=== PATIENT | female | born 1945 | race Caucasian/White ===

== ENCOUNTER → 2017-05-28 | Outpatient (CLI) | payer BC ==
[~2017-05-28] MED LIST: ALLGUNK; OXYC10TA31; [UNRECOGNIZED DRUG - REMARK]; [UNRECOGNIZED DRUG - REMARK]; [UNRECOGNIZED DRUG - REMARK]; [UNRECOGNIZED DRUG - REMARK]; [UNRECOGNIZED DRUG - REMARK]
--- NOTE | 2017-05-29 07:43 | MAMMOGRAPHY REPORT ---
BILATERAL DIGITAL SCREENING MAMMOGRAM WITH CAD: 05/28/2017 CLINICAL HISTORY: Routine screening. Patient has no complaints. TECHNIQUE: Bilateral CC and MLO views were obtained. Current study was also evaluated with a Compute r Aided Detection (CAD) system. COMPARISON: Comparison is made to exams dated: 05/23/2016 mammogram, 05/20/2015 mammogram, 05/19/2014 m ammogram, 03/12/2013 mammogram, 02/28/2012 mammogram, and 02/20/2011 mammogram - [facility] nter. BREAST COMPOSITION: There are scattered areas of fibroglandular density in both breasts. FINDINGS: There are mild vascular calcifications in the left breast. There is a stable biopsy clip in the right breast. No suspicious mass, architectural distortion or cluster of microcalcifications is seen. IMPRESSION: ACR BI-RADS CATEGORY 2: BENIGN There is no mammographic evidence of malignancy. A 1 year screening mammogram is recommended. The pa tient will receive written notification of the results. Approximately 10% of breast cancers are not detected with mammography. A negative mammographic report should not delay biopsy if a clinically suggestive mass is present. Julieta Narvaez M.D. ay/:05/28/2017 15:40:01 Soda Clerk: Mi EASON(Rocael)(Minoo)(BD), [facility] letter sent: Normal 1/2 BI-RADS Code: ACR BI-RADS Category 2: Benign
== END | disposition home or self-care (01) ==
LOC: C.MAMM 10:15
PROVIDERS: ATTEND Family Medicine
DX: Z12.31 Encounter for screening mammogram for malignant neoplasm of breast (principal)

== ENCOUNTER → 2017-06-26 | Outpatient (CLI) | payer BC ==
--- NOTE | 2017-06-26 11:32 | DIAGNOSTIC IMAGING REPORT ---
(RENAL)RETROPERITON COMP CLINICAL HISTORY: 71 years-old Female presenting with N28.1 Renal cyst, [id number]. TECHNIQUE: Real-time grayscale and limited color Doppler ultrasound imaging of the kidneys and bladder was performed. COMPARISON: 07/04/2016. FINDINGS: Right kidney: Normal echogenicity. Right kidney measures 9.7 cm. No hydronephrosis. Previously noted minimally complex cystic lesion in the right kidney again demonstrates at least one septation, which does not demonstrate vascularity on color Doppler but is borderline thick orbits contain thin calcification. This lesion now measures 5.6 x 5.6 x 4.8 cm, previously 5.8 x 5.3 x 6.0 cm. Normal perfusion. Left kidney: Normal echogenicity. Left kidney measures 10.0 cm. No hydronephrosis. 6 mm hyperechogenic focus with twinkling artifact suggestive of calculus in the interpolar region. Additional similar-appearing 6 mm focus at the upper pole. Normal perfusion. Bladder: No bladder wall thickening. Bilateral ureteral jets present. Other: None. IMPRESSION: 1. Nonobstructing left renal calculi. 2. Minimally complex cystic lesion in the right kidney (Bosniak 2F). Follow-up ultrasound or CT to be considered in 6-12 months, although the lesion is unchanged in size at one year. Electronically signed by: Jose Guadalupe Gao M.D. 06/26/2017 11:31 AM Dictated Date/Time: 06/26/2017 11:27 AM
== END | disposition home or self-care (01) ==
LOC: C.ULTR 10:41
PROVIDERS: ATTEND Urology
DX: N28.1 Cyst of kidney, acquired (principal); N20.0 Calculus of kidney

== ENCOUNTER → 2017-10-02 | Outpatient (CLI) | payer BC ==
[2017-10-02 18:23] LABS: BASO % 0.1 %; BASO ABS # 0.01 K/uL (0-0.2); HEMATOCRIT 45.4 % (37-47); HEMOGLOBIN 15.2 g/dL (12.0-16.0); IG# 0.02 K/uL (0.00-0.02); LYMPH % 8.2 %; LYMPH ABS # 0.81 K/uL (1.2-3.4); MEAN CELL VOLUME 86.1 fL (80-100); MEAN CORPUSCULAR HEMOGLOBIN 28.8 pg (25-34); MEAN CORPUSCULAR HGB CONC 33.5 g/dl (32-36); MEAN PLATELET VOLUME 10.4 fL (7.4-10.4); MONO % 9.9 %; MONO ABS # 0.97 K/uL (0.11-0.59); NEUT % 81.6 %; NEUT ABS # 8.01 K/uL (1.4-6.5); PLATELET COUNT 177 K/uL (130-400); RED CELL DISTRIBUTION WIDTH CV 13.4 % (11.5-14.5); RED CELL DISTRIBUTION WIDTH SD 42.4 fL (36.4-46.3); WHITE BLOOD COUNT 9.82 K/uL (4.8-10.8)
[2017-10-02 18:40] LABS: BLOOD UREA NITROGEN 17 mg/dl (7-18); CALCIUM 8.9 mg/dl (8.5-10.1); CARBON DIOXIDE 29 mmol/L (21-32); CREATININE 1.37 mg/dl (0.60-1.20); GLUCOSE 96 mg/dl (70-99); POTASSIUM 3.1 mmol/L (3.5-5.1); SODIUM 134 mmol/L (136-145)
--- NOTE | 2017-10-02 18:45 | DIAGNOSTIC IMAGING REPORT ---
CHEST 2 VIEWS ROUTINE CLINICAL HISTORY: COUGH FEVER, FATIGUE COMPARISON STUDY: August 2012 FINDINGS: The study is rotated. The heart is mildly enlarged. There is nonspecific increased density in the right paratracheal region. There is suspected right lower lobe bronchiectasis.[ There is no failure. There is no pleural fluid. Right basilar airspace opacities likely atelectatic IMPRESSION: 1. Technically limited study 2. No evidence of failure 3. Suspected right lower lobe bronchiectasis 4. Right basilar airspace opacities, likely atelectatic 5. Nonspecific increased density in the right paratracheal region. A short-term follow-up chest x-ray or chest CT is recommended Electronically signed by: Matt Brown M.D. 10/02/2017 6:44 PM Dictated Date/Time: 10/02/2017 6:40 PM
== END | disposition home or self-care (01) ==
LOC: C.LAB 17:35
PROVIDERS: ATTEND Family Medicine
DX: R05 Cough (principal); R53.83 Other fatigue

== ENCOUNTER 2023-11-16 14:35 | Observation (INO) ==
[2023-11-16] MEDS: SODIUM CHLORIDE 0.9% 500 ML IV SCH (15:14)
--- NOTE | 2023-11-16 15:17 | Emergency Department Note ---
Impression & Plan Palpitations, Diaphoresis, Elevated troponin, History of atrial fibrillation, Hypertension ED Provider Note NAME: YRIS FIELDS AGE: 78 SEX: F : 1945 ARRIVES VIA: Ambulance INFORMANT: [Patient] ED PROVIDER(S): [Everardo Bernstein MD] CHIEF COMPLAINT: Cardiac assessment HISTORY OF PRESENT ILLNESS: The patient is an 78-year-old female with a history of A-fib. She has undergone ablation. She is not currently on blood thinning agents or any rate controlling meds. She states in the last 24 or so hours, she has noticed episodes of palpitations. The episodes last about 15 minutes. She feels a bit sweaty when they occur and almost hot. No shortness of breath or chest pain. Nothing seems to bring the episodes on. There has been no cough or congestion. She has been otherwise in baseline health. She was worried that she may be back in A-fib. PMHx/PSHx/Social Hx: See Below PHYSICAL EXAM: GENERAL: Patient is in no acute distress. HEENT: No acute trauma, normocephalic atraumatic, mucous membranes moist, no nasal congestion. NECK: No stridor, no adenopathy, no meningismus, trachea is midline. LUNGS: Clear to auscultation bilaterally, no wheeze, no rhonchi, breath sounds equal. HEART: 2/6 systolic murmur, regular rhythm with occasional extra beat. Normal rate. ABDOMEN: Soft, nontender, no peritonitis. EXTREMITIES: No cyanosis, full range of motion of all the joints without pain or difficulty. NEUROLOGIC: Oriented x 3, no acute motor or sensory deficits, no focal weakness. SKIN: No jaundice, no diaphoresis. DIFFERENTIAL DIAGNOSIS: A-fib, a flutter, SVT, V. tach, PACs or PVCs, dehydration, electrolyte imbalance, anemia, and others. EMERGENCY DEPARTMENT PROCEDURES: MEDICAL DECISION MAKING: There is no leukocytosis or concerning anemia. There is a normal platelet count. No renal failure or significant electrolyte abnormality. No concerning liver enzyme elevation. The patient appears to be in a euthyroid state. ECG shows a sinus rhythm with a PAC, no ST elevation, no concerning dysrhythmia. Cardiac enzyme testing x 1 is slightly elevated. This troponin elevation could be secondary to mismatch or potentially cardiac injury. Urinalysis does not show findings of infection. Chest x-ray does not show mediastinal widening, pneumonia or pneumothorax. Patient has a history of A-fib. She is not on rate controlling meds or anticoagulation. She presents with palpitations, sweating. Given her age, given the diaphoresis, given her complaints and the troponin elevation, I do think a hospital stay would be warranted. She requires monitoring and further cardiac workup. Of note, the patient was hypertensive here in the ED. She was ordered for 10 mg of IV labetalol. She was given 500 cc of IV saline for hydration. I spoke with the patient and case management, the on-call hospitalist was consulted. Prior/Outside records/notes reviewed: None ECG per my interpretation: Indication was palpitations. The ECG shows a sinus rhythm with a PAC. The rate is 70. There is no acute ST elevation, no PVCs. The QTc was 416. Continuous Cardiac Monitoring per my interpretation: An order was placed for continuous cardiac monitoring. The monitor shows a rate of 86 with sinus rhythm with a PAC. Imaging/x-ray results per my interpretation: Chest x-ray does not show mediastinal widening, pneumonia or pneumothorax. Chronic Medical/Social conditions affecting care: Advanced age. Care/Management discussed with: Case management, the on-call hospitalist. Level of care consideration(s): After review of the information above and other included data: --I believe the patient requires escalation of care to admission DISPOSITION: Admission Past Med/Surg History Medical History Urinary incontinence Renal cyst, acquired Presence of intrathecal pump PAIN PUMP (DILAUDID) Degenerative disc disease Urinary urgency Kidney cysts BEING MONITORED GERD (gastroesophageal reflux disease) Tachycardia Cardiac murmur Hx of essential hypertension Hyperlipidemia Orbital floor (blow-out) closed fracture Surgical History Fusion of spine H/O cardiac radiofrequency ablation History of appendectomy History of cataract surgery History of cholecystectomy History of colonoscopy History of esophagogastroduodenoscopy (EGD) History of tooth extraction Hx of ectopic Nausea and vomiting after administration of anesthetic agent S/P blepharoplasty (~04/2019) S/P cervical spinal fusion S/P cholecystectomy Family History Grandmother Diabetes Other Cancer Hypertension Social History Smoking Status: Never smoker Second Hand Exposure: No; Do You Dip or Chew Tobacco: No; Hx Alcohol Use: No Hx Substance Use: No Preferred Language: Malawian Communication Ability: Effective Garment Worker Required: No Beliefs That Will Affect Care: None marital status: Current Living Situation: Spouse current occupational status: retired Feels Safe at Home: Yes Assistive Devices: Cane, Denture - Lower and Glasses Allergies Allergies Allergy/AdvReac Type Severity Reaction Status Date / Time celecoxib Allergy Intermediate FACIAL Verified 11/16/23 16:53 SWELLING ibuprofen Allergy Intermediate EYE Verified 11/16/23 16:53 SWELLING Iodinated Contrast Media Allergy Intermediate SWELLING Verified 11/16/23 16:53 OF NOSE/EYES AND SNEEZING iodine Allergy Intermediate RASH IF ON Verified 11/16/23 16:53 SKIN. SWELLING IF TAKEN INTERNALLY. povidone Allergy Mild RASH ON Verified 11/16/23 16:53 SKIN Home Meds Home Medications Medication Instructions Recorded Confirmed hydromorphone 1 mg/mL injection 0 mg subcut CONT 03/24/19 11/16/23 solution aspirin 81 mg tablet,delayed 81 mg PO QAM 05/07/19 11/16/23 release fluticasone propionate 50 1 spray intranasal QAM 05/07/19 11/16/23 mcg/actuation nasal spray,suspension bupivacaine HCl 0.25 % (2.5 mg/mL) 0 mg Infiltration CONTINOUS 03/12/20 11/16/23 injection solution cetirizine 10 mg tablet 10 mg PO DAILY PRN Congestion 05/13/20 11/16/23 oxycodone-acetaminophen 10 mg-325 1 tab PO BID PRN Pain 05/13/20 11/16/23 mg tablet (Percocet) pravastatin 20 mg tablet 20 mg PO DAILY 05/13/20 11/16/23 alendronate 70 mg tablet 70 mg PO WK 12/07/22 11/16/23 lisinopril 20 mg tablet 20 mg PO DAILY 11/16/23 11/16/23 Previous Rx's Medication Instructions Recorded mirabegron 50 mg tablet,extended 50 mg PO DAILY #90 tabs 12/07/22 release 24 hr (Myrbetriq) Results & Data (ED) Vital Signs Vital Signs - 24 hr 11/16/23 14:39 11/16/23 15:11 11/16/23 15:11 Temperature 36.3 C L Temperature Source Temporal Artery Scan Pulse Rate 86 Pulse Rate [Apical] Respiratory Rate 16 Respiratory Effort / Characteristics Non-Labored Respiratory Depth Normal Blood Pressure 178/82 H Blood Pressure [Right Arm] Blood Pressure Mean 114 Blood Pressure Mean [Right Arm] Pulse Oximetry 98 Oxygen Delivery Method Room Air Room Air Room Air Sepsis Recent Fever Within 48 Hours No Sepsis New/Unexplained Change in Mental Status No Sepsis Action Taken by Nursing No Action Required 11/16/23 15:17 11/16/23 15:22 Temperature Temperature Source Pulse Rate 90 Pulse Rate [Apical] 78 Respiratory Rate 12 Respiratory Effort / Characteristics Respiratory Depth Blood Pressure Blood Pressure [Right Arm] 179/86 H Blood Pressure Mean Blood Pressure Mean [Right Arm] 117 Pulse Oximetry 99 Oxygen Delivery Method Room Air Sepsis Recent Fever Within 48 Hours Sepsis New/Unexplained Change in Mental Status Sepsis Action Taken by [facility] Medications Current Medication List: was personally reviewed by me Laboratory Data Attestation: I reviewed the patient's lab results. 11/16/23 15:08 11/16/23 15:08 Lab Results 11/16/23 11/16/23 Range/Units 15:05 15:08 WBC 6.11 (4.8-10.8) K/ul RBC 5.08 (4.20-5.40) M/uL Hgb 14.3 (12.0-16.0) g/dl Hct 45.3 (37.0-47.0) % MCV 89.2 (80.0-100.0) fL MCH 28.1 (25.0-34.0) pg MCHC 31.6 L (32.0-36.0) g/dL RDW Std Deviation 40.8 (36.4-46.3) fL RDW Coeff of [place]ak 12.3 (11.5-14.5) % Plt Count 217 (130-400) K/uL MPV 11.3 (9.4-12.4) fL Immature Gran % (Auto) 0.3 % Neut % (Auto) 79.5 % Lymph % (Auto) 14.1 % [place] % (Auto) 5.6 % Eos % (Auto) 0.2 % Baso % (Auto) 0.3 % Neut # (Auto) 4.86 (1.40-6.50) K/uL Lymph # (Auto) 0.86 L (1.20-3.40) K/uL [place] # (Auto) 0.34 (0.11-0.59) K/uL Eos # (Auto) 0.01 (0.00-0.50) K/uL Baso # (Auto) 0.02 (0.00-0.20) K/uL Immature Gran # (Auto) 0.02 (0.01-0.20) K/uL Sodium 141 (136-145) mmol/L Potassium 4.1 (3.5-5.1) mmol/L Chloride 104 (98-107) mmol/L Carbon Dioxide 28 (21-32) mmol/L Anion Gap 9 (3-11) BUN 12 (6-23) mg/dl Creatinine 1.01 (0.6-1.2) mg/dl Est Cr Clr Drug Dosing Not Reportable Est GFR ( Amer) 60.9 ml/min Est GFR (Non-Af Amer) 52.5 ml/min BUN/Creatinine Ratio 11.9 (10-20) Glucose 110 H (70-99(Fasting)) mg/dl Calcium 9.9 (8.6-10.3) mg/dl Magnesium 2.2 (1.7-2.4) mg/dl Total Bilirubin 0.7 (0.2-1.0) mg/dl AST 25 (13-39) U/L ALT 13 (7-52) U/L Alkaline Phosphatase 44 (34-104) U/L Troponin I High Sens 15.8 H (0-14) pg/ml Total Protein 7.3 (6.0-8.3) gm/dl Albumin 4.7 (3.4-5.0) gm/dl Globulin 2.6 (2.5-4.0) gm/dl Albumin/Globulin Ratio 1.8 (0.9-2) TSH 0.472 (0.300-4.500) uIu/ml Urine Color Yellow Urine Appearance Clear (Clear) Urine pH 6.0 (4.5-7.5) Ur Specific [place] 1.009 (1.000-1.030) Urine Protein Negative (Negative) Urine Glucose (UA) Negative (Negative) Urine Ketones Negative (Negative) Urine Blood Negative (Negative) Urine Nitrite Negative (Negative) Urine Bilirubin Negative (Negative) Urine Urobilinogen Negative (Negative) Ur Leukocyte Esterase Negative (Negative) Administered Medications Discontinued Medications Sodium Chloride (Nss) 500 mls @ 999 mls/hr IV .Q31M RAJ Stop: 11/16/23 15:30 Last Infusion: 11/16/23 16:54 Dose: Infused Documented By: Admin: 11/16/23 15:14 Dose: 999 mls/hr Documented By: JOCE Labetalol HCl (Labetalol Hcl Iv 5 Mg/Ml 20ml) 10 mg IV NOW STA Stop: 11/16/23 16:52 Last Admin: 11/16/23 17:31 Dose: Not Given Documented By: JOCE Imaging Data Radiologist's Impression: Chest X-Ray 11/16/23 14:56 XR chest 1V portable HISTORY: weakness COMPARISON: Chest 03/24/2019. FINDINGS: No pneumothorax. No pleural effusions. The lungs are clear. The heart is normal in size. Slightly rotated study. No acute fractures. Lumbar spinal fusion hardware is noted. IMPRESSION: No acute process. ACT 112: Negative or not required by law. Electronically signed by: Joe Cali M.D. 11/16/2023 3:29 PM Discharge Plan Visit Data Chief Complaint: Cardiac Assessment ED Provider: Everardo Bernstein Discharge Problem: Palpitations, Diaphoresis, Elevated troponin, History of atrial fibrillation, Hypertension Patient Disposition: Admitted As Inpatient Condition: Fair Forms Stand Alone Forms: My [facility] Prescriptions Prescriptions: No Action alendronate 70 mg tablet 70 mg PO WK Rx Instructions: Tues Myrbetriq 50 mg tablet extended release 24 hr 50 mg PO DAILY Qty: 90 3RF bupivacaine HCl 0.25 % (2.5 mg/mL) solution 0 mg Infiltration CONTINOUS pravastatin 20 mg tablet 20 mg PO DAILY oxycodone-acetaminophen [Percocet] 10-325 mg tablet 1 tab PO BID MDD 2 TABS/24 HOURS PRN (Reason: Pain) Rx Instructions: 2 tabs PO Daily PRN; cetirizine 10 mg tablet 10 mg PO DAILY PRN (Reason: Congestion) hydromorphone 1 mg/mL Solution 0 mg subcut CONT Patient Comments: FOLLOWS WITH DR. MCCARTY AT [facility] Rx Instructions: CONTINUOUS INFUSION VIA PUMP aspirin 81 mg Tablet,Delayed Release (Dr/Ec) 81 mg PO QAM fluticasone propionate 50 mcg/actuation [place],Suspension 1 spray INTRANASAL QAM lisinopril 20 mg tablet 20 mg PO DAILY Referrals Referrals: Silvia Mccabe MD [Primary Care Provider] - Discharge Problem: Hypertension Qualifiers: Hypertension type: unspecified Qualified Code(s): I10 - Essential (primary) hypertension
[2023-11-16 15:24] LABS: Basophils # (auto) 0.02 K/uL (0.00-0.20); Basophils % (auto) 0.3 %; Eosinophils # (auto) 0.01 K/uL (0.00-0.50); Eosinophils % (auto) 0.2 %; Hematocrit (blood only) 45.3 % (37.0-47.0); Hemoglobin 14.3 g/dl (12.0-16.0); Immature Granulocytes # (auto) 0.02 K/uL (0.01-0.20); Immature Granulocytes % (auto) 0.3 %; Lymphocytes # (auto) 0.86 K/uL (1.20-3.40); Lymphocytes % (auto) 14.1 %; Mean Corpuscular Hemoglobin 28.1 pg (25.0-34.0); Mean Corpuscular Hgb Conc 31.6 g/dL (32.0-36.0); Mean Corpuscular Volume 89.2 fL (80.0-100.0); Mean Platelet Volume 11.3 fL (9.4-12.4); Monocytes # (auto) 0.34 K/uL (0.11-0.59); Monocytes % (auto) 5.6 %; Neutrophils # (auto) 4.86 K/uL (1.40-6.50); Neutrophils % (auto) 79.5 %; Platelet Count 217 K/uL (130-400); RDW Coefficient of Variation 12.3 % (11.5-14.5); RDW Standard Deviation 40.8 fL (36.4-46.3); Red Blood Count 5.08 M/uL (4.20-5.40); White Blood Count 6.11 K/ul (4.8-10.8)
[2023-11-16 15:25] LABS: Appearance Urine Clear (Clear); Bilirubin Urine Negative (Negative); Blood Urine Negative (Negative); Color Urine Yellow; Glucose Urine UA Negative (Negative); Ketones Urine Negative (Negative); Leukocyte Esterase Urine Negative (Negative); Nitrite Urine Negative (Negative); Protein Urine Negative (Negative); Specific Gravity Urine 1.009 (1.000-1.030); Urobilinogen Urine Negative (Negative)
--- NOTE | 2023-11-16 15:31 | XRay Report ---
XR chest 1V portable HISTORY: weakness COMPARISON: Chest 03/24/2019. FINDINGS: No pneumothorax. No pleural effusions. The lungs are clear. The heart is normal in size. Sl ightly rotated study. No acute fractures. Lumbar spinal fusion hardware is noted. IMPRESSION: No acute process. ACT 112: Negative or not required by law. Electronically signed by: Joe Cali M.D. 11/16/2023 3:29 PM
[2023-11-16 15:39] LABS: Alanine Aminotransferase 13 U/L (7-52); Albumin Globulin Ratio 1.8 (0.9-2); Albumin Level 4.7 gm/dl (3.4-5.0); Alkaline Phosphatase 44 U/L (34-104); Anion Gap 9 (3-11); Aspartate Aminotransferase 25 U/L (13-39); BUN Creatinine Ratio 11.9 (10-20); Bilirubin,Total 0.7 mg/dl (0.2-1.0); Blood Urea Nitrogen 12 mg/dl (6-23); Calcium 9.9 mg/dl (8.6-10.3); Carbon Dioxide 28 mmol/L (21-32); Chloride 104 mmol/L (98-107); Est GFR (African American) 60.9 ml/min; Est GFR (Non-African American) 52.5 ml/min; Globulin 2.6 gm/dl (2.5-4.0); Glucose 110 mg/dl (70-99(Fasting)); Magnesium 2.2 mg/dl (1.7-2.4); Potassium 4.1 mmol/L (3.5-5.1); Sodium 141 mmol/L (136-145); Total Protein 7.3 gm/dl (6.0-8.3)
[2023-11-16 15:45] LABS: Troponin I High Sensitivity 15.8 pg/ml (0-14)
[2023-11-16 15:55] LABS: Thyroid Stimulating Hormone 0.472 uIu/ml (0.300-4.500)
--- NOTE | 2023-11-16 17:09 | History & Physical Report ---
Date of Service November 16, 2023 Assessment & Plan (1) Palpitations: Plan: with associated diaphoresis Possible precipitating factor of mild dehydration with working hard yesterday Monitor overnight on telemetry for confirmation - if nothing on monitor overnight can likely be discharged with laboratory monitor No chest pain or shortness of breath to suggest ACS Plan VTE Prophyalxis - low risk Diet - heart healthy Disposition - observation on med/tele Admission and Anticipated Discharge Date Admission Date: November 16, 2023 History of Present Illness Chief Complaint: Palpitations, diaphoresis Primary Care Provider: Silvia Mccabe MD Any Coughlin is an 78 year old female who presents to the ER with intermittent episodes of palpitations and diaphoresis. She reports x3 intermittent episodes since last night lasting 15-20 minutes. No chest pain or shortness of breath. She has a history of atrial fibrillation but no episodes for many years following ablation around 8 years ago. At that time her atrial fibrillation made her symptomatic with dizziness/lightheadedness including a syncopal episode. She went to her PCP office today and felt her heart pounding but no like the prior episodes at home. Therefore she was sent to the ER today for further workup. She reports working hard all day yesterday but otherwise before and inbetween episodes she has felt like her normal self. Episodes come on with rest, no exertion. No prior [place]. She took all her usual morning medications. Allergies Allergy/AdvReac Type Severity Reaction Status Date / Time celecoxib Allergy Intermediate FACIAL Verified 11/16/23 16:53 SWELLING ibuprofen Allergy Intermediate EYE Verified 11/16/23 16:53 SWELLING Iodinated Contrast Media Allergy Intermediate SWELLING Verified 11/16/23 16:53 OF NOSE/EYES AND SNEEZING iodine Allergy Intermediate RASH IF ON Verified 11/16/23 16:53 SKIN. SWELLING IF TAKEN INTERNALLY. povidone Allergy Mild RASH ON Verified 11/16/23 16:53 SKIN Home Medications Medication Instructions Recorded Confirmed Type hydromorphone 1 mg/mL injection 0 mg subcut CONT 03/24/19 11/16/23 History solution aspirin 81 mg tablet,delayed 81 mg PO QAM 05/07/19 11/16/23 History release fluticasone propionate 50 1 spray intranasal QAM 05/07/19 11/16/23 History mcg/actuation nasal spray,suspension bupivacaine HCl 0.25 % (2.5 mg/mL) 0 mg Infiltration CONTINOUS 03/12/20 11/16/23 History injection solution cetirizine 10 mg tablet 10 mg PO DAILY PRN Congestion 05/13/20 11/16/23 History oxycodone-acetaminophen 10 mg-325 1 tab PO BID PRN Pain 05/13/20 11/16/23 History mg tablet (Percocet) pravastatin 20 mg tablet 20 mg PO DAILY 05/13/20 11/16/23 History alendronate 70 mg tablet 70 mg PO WK 12/07/22 11/16/23 History mirabegron 50 mg tablet,extended 50 mg PO DAILY #90 tabs 12/07/22 11/16/23 Rx release 24 hr (Myrbetriq) lisinopril 20 mg tablet 20 mg PO DAILY 11/16/23 11/16/23 History Past Med/Surg History Medical History Urinary incontinence Renal cyst, acquired Presence of intrathecal pump PAIN PUMP (DILAUDID) Degenerative disc disease Urinary urgency Kidney cysts BEING MONITORED GERD (gastroesophageal reflux disease) Tachycardia Cardiac murmur Hx of essential hypertension Hyperlipidemia Orbital floor (blow-out) closed fracture Surgical History Fusion of spine H/O cardiac radiofrequency ablation History of appendectomy History of cataract surgery History of cholecystectomy History of colonoscopy History of esophagogastroduodenoscopy (EGD) History of tooth extraction Hx of ectopic Nausea and vomiting after administration of anesthetic agent S/P blepharoplasty (~04/2019) S/P cervical spinal fusion S/P cholecystectomy Family History Grandmother Diabetes Other Cancer Hypertension Social History Smoking Status: Never smoker Second Hand Exposure: No; Do You Dip or Chew Tobacco: No; Tobacco Cessation Education Requested by Patient: No Hx Alcohol Use: No Hx Substance Use: No Preferred Language: South African Communication Ability: Effective Journalism Instructor Required: No Beliefs That Will Affect Care: None marital status: Current Living Situation: Spouse Current Living Situation Comment: in personal apartment current occupational status: retired Other Information That Helps Us Care for You: No Feels Safe at Home: Yes Safety Concerns: Feels Safe At This Time Assistive Devices: Cane, Denture - Upper, Denture - Lower and Glasses Review of Systems Review of Systems: All systems reviewed & are unremarkable except as noted in HPI & below Physical Exam Constitutional: WD/WN, vitals as above Respiratory: normal respiratory effort, lungs clear to auscultation Cardiovascular: Rate/Rhythm: regular rate and + irregularly irregular (occasional PACs on telemetry) Gastrointestinal (Abdomen): normal bowel sounds, soft, nontender, no hepatosplenomegaly Skin: no rashes, warm and dry Neurologic: moves all extremities and awake; not confused Psychiatric: Orientation: alert and oriented x 3 Results & Data Results & Data Vital Signs (Past 12 Hours) Vital Signs Temp Pulse Pulse Resp BP BP Pulse Ox 11/16/23 15:22 78 12 179/86 H 99 11/16/23 15:17 90 11/16/23 15:11 11/16/23 15:11 11/16/23 14:39 36.3 C L 86 16 178/82 H 98 O2 Del Method 11/16/23 15:22 Room Air 11/16/23 15:17 11/16/23 15:11 Room Air 11/16/23 15:11 Room Air 11/16/23 14:39 Room Air Laboratory Results Abnormal lab results 11/16/23 Range/Units 15:08 MCHC 31.6 L (32.0-36.0) g/dL Lymph # (Auto) 0.86 L (1.20-3.40) K/uL Glucose 110 H (70-99(Fasting)) mg/dl Troponin I High Sens 15.8 H (0-14) pg/ml Diagnostic Findings XR chest 1V portable HISTORY: weakness COMPARISON: Chest 03/24/2019. FINDINGS: No pneumothorax. No pleural effusions. The lungs are clear. The heart is normal in size. Slightly rotated study. No acute fractures. Lumbar spinal fus ion hardware is noted. IMPRESSION: No acute process. Medications Administered ER Medications Given: NSS 500ml bolus ECG Rate (beats per minute): 70 Rhythm: normal sinus Findings: + PAC Comparison ECG Date: from (March 24, 2019) Change: the following changes noted (PACs now present) Code Status & VTE Plan Code Status Full VTE Prophylaxis Plan VTE Prophylaxis will be ordered: Yes PG Care Time/CCT Total # of Minutes Spent Total Time Spent with Patient: Total time spent is greater than 50% in coordination of care (as documented) at patient's floor/unit and/or counseling patient: Coding Level of Care Code 52130 INT INP/OBS CARE 2/55MIN Diagnoses Palpitations R00.2
[2023-11-16] MEDS: LABETALOL HCL IV 5 MG/ML 20ML IV STA (17:31)
[2023-11-17 07:06] LABS: Basophils # (auto) 0.02 K/uL (0.00-0.20); Basophils % (auto) 0.4 %; Eosinophils # (auto) 0.04 K/uL (0.00-0.50); Eosinophils % (auto) 0.8 %; Hematocrit (blood only) 40.4 % (37.0-47.0); Hemoglobin 12.6 g/dl (12.0-16.0); Immature Granulocytes # (auto) 0.01 K/uL (0.01-0.20); Immature Granulocytes % (auto) 0.2 %; Lymphocytes # (auto) 1.34 K/uL (1.20-3.40); Lymphocytes % (auto) 27.9 %; Mean Corpuscular Hemoglobin 27.8 pg (25.0-34.0); Mean Corpuscular Hgb Conc 31.2 g/dL (32.0-36.0); Mean Corpuscular Volume 89.2 fL (80.0-100.0); Mean Platelet Volume 11.1 fL (9.4-12.4); Monocytes # (auto) 0.46 K/uL (0.11-0.59); Monocytes % (auto) 9.6 %; Neutrophils # (auto) 2.93 K/uL (1.40-6.50); Neutrophils % (auto) 61.1 %; Platelet Count 192 K/uL (130-400); RDW Coefficient of Variation 12.6 % (11.5-14.5); RDW Standard Deviation 41.2 fL (36.4-46.3); Red Blood Count 4.53 M/uL (4.20-5.40)
[2023-11-17 07:21] LABS: BUN Creatinine Ratio 12.9 (10-20); Calcium 8.7 mg/dl (8.6-10.3); Creatinine Clr Calc Pharmacy 44.7 ml/min; Est GFR (Non-African American) 64.7 ml/min; Potassium 4.1 mmol/L (3.5-5.1)
[2023-11-17] MEDS: ASPIRIN 81 MG ECTAB PO SCH (08:14)
[2023-11-17] MEDS: lisinopril 20 MG TAB PO SCH (08:15)
[2023-11-17] MEDS: FLUTICASONE PROPIONATE NA SPR 16 GM BTL NAE SCH (08:16)
--- NOTE | 2023-11-17 12:05 | Hospitalist Progress Note ---
Date of Service November 17, 2023 Assessment & Plan (1) Palpitations: Plan: with associated diaphoresis Possible precipitating factor of mild dehydration with working hard on the day of admission Patient was monitored overnight on telemetry She did not have any episodes of palpitations or diaphoresis and on telemetry she only had some PVCs Patient would like to stay another night to see if she has any recurrence of her symptoms No chest pain or shortness of breath to suggest ACS Plan VTE Prophyalxis - low risk Diet - heart healthy Provided patient states stable overnight, plan to discharge her tomorrow with a Holter monitor to be arranged soon after Admission and Anticipated Discharge Date Admission Date: November 16, 2023 Subjective Patient did not have any episodes of palpitation overnight. Checked with cardiac cath tech. Patient had a few episodes of PVCs but no other arrhythmias Review of Systems Review of Systems: All systems reviewed & are unremarkable except as noted in Subjective Physical Exam Physical Exam: General: Awake, conversant Heart: S1, S2/regular rate and rhythm, no murmur rubs or gallops Lungs: Clear to auscultation bilaterally. Normal effort Abdomen: Soft/nontender/nondistended. No hepatosplenomegaly Extremities: No clubbing/cyanosis. No edema Behavior: Appropriate, cooperative Results & Data Results & Data Vital Signs (Past 12 Hours) Vital Signs Temp Pulse Pulse Resp BP BP Pulse Ox 11/17/23 11:46 36.8 C 68 18 154/80 H 99 11/17/23 08:32 51 L 11/17/23 07:52 36.8 C 62 18 162/80 H 99 11/17/23 03:37 36.7 C 55 L 16 106/64 96 O2 Del Method 11/17/23 11:46 Room Air 11/17/23 08:32 11/17/23 07:52 Room Air 11/17/23 03:37 Room Air Laboratory Results Abnormal lab results 11/16/23 11/16/23 11/17/23 Range/Units 15:08 17:50 00:20 MCHC 31.6 L (32.0-36.0) g/dL Lymph # (Auto) 0.86 L (1.20-3.40) K/uL Chloride (98-107) mmol/L Glucose 110 H (70-99(Fasting)) mg/dl Troponin I High Sens 15.8 H 23.9 H 31.4 H (0-14) pg/ml 11/17/23 Range/Units 06:43 MCHC 31.2 L (32.0-36.0) g/dL Lymph # (Auto) (1.20-3.40) K/uL Chloride 109 H (98-107) mmol/L Glucose (70-99(Fasting)) mg/dl Troponin I High Sens 21.8 H (0-14) pg/ml PG Care Time/CCT Total # of Minutes Spent Total Time Spent with Patient: Total time spent is greater than 50% in coordination of care (as documented) at patient's floor/unit and/or counseling patient: Coding Level of Care Code 89618 SUB INP/OBS CARE 2/35MIN Diagnoses Palpitations R00.2
[2023-11-17] MEDS: oxyCODONE/ACETAMINOPHEN 10-325 TAB PO PRN (12:25)
[2023-11-17] MEDS: NAPROXEN 250 MG TAB PO PRN (20:01)
--- NOTE | 2023-11-18 10:29 | Discharge Summary ---
Date of Service November 18, 2023 Admission HPI Per Admitting Provider Any Coughlin is an 78 year old female who presents to the ER with intermittent episodes of palpitations and diaphoresis. She reports x3 intermittent episodes since last night lasting 15-20 minutes. No chest pain or shortness of breath. She has a history of atrial fibrillation but no episodes for many years following ablation around 8 years ago. At that time her atrial fibrillation made her symptomatic with dizziness/lightheadedness including a syncopal episode. She went to her PCP office today and felt her heart pounding but no like the prior episodes at home. Therefore she was sent to the ER today for further workup. She reports working hard all day yesterday but otherwise before and inbetween episodes she has felt like her normal self. Episodes come on with rest, no exertion. No prior MA. She took all her usual morning medications. Admission Exam Per Admitting Provider Constitutional: WD/WN, vitals as above Respiratory: normal respiratory effort, lungs clear to auscultation Cardiovascular: Rate/Rhythm: regular rate and + irregularly irregular (occasional PACs on telemetry) Gastrointestinal (Abdomen): normal bowel sounds, soft, nontender, no hepatosplenomegaly Skin: no rashes, warm and dry Neurologic: moves all extremities and awake; not confused Psychiatric: Orientation: alert and oriented x 3 Principal Diagnosis Palpitation, likely secondary to nonsustained V. tach. Holter monitor will be arranged. Discharge Exam General: Awake, conversant Heart: S1, S2/regular rate and rhythm, no murmur rubs or gallops Lungs: Clear to auscultation bilaterally. Normal effort Abdomen: Soft/nontender/nondistended. No hepatosplenomegaly Extremities: No clubbing/cyanosis. No edema Behavior: Appropriate, cooperative Discharge Data Allergies Allergy/AdvReac Type Severity Reaction Status Date / Time celecoxib Allergy Intermediate FACIAL Verified 11/16/23 16:53 SWELLING ibuprofen Allergy Intermediate EYE Verified 11/16/23 16:53 SWELLING Iodinated Contrast Media Allergy Intermediate SWELLING Verified 11/16/23 16:53 OF NOSE/EYES AND SNEEZING iodine Allergy Intermediate RASH IF ON Verified 11/16/23 16:53 SKIN. SWELLING IF TAKEN INTERNALLY. povidone Allergy Mild RASH ON Verified 11/16/23 16:53 SKIN Consultations 11/16/23 16:52 ED Decision to Admit Stat Hospital Course (1) Palpitations: with associated diaphoresis Possible precipitating factor of mild dehydration with working hard on the day of admission Patient was monitored for 2 nights on telemetry She did not have any episodes of palpitations or diaphoresis and on telemetry she only had some PVCs No chest pain or shortness of breath to suggest ACS The plan is to discharge her and to arrange for Holter monitor. Referral sent to nurse navigator to get this arranged. The patient is rather bradycardic and thus starting beta-david was not an option Plan Discharge today Total Time Total Time Spent Total Time Spent (In Minutes): 35 Discharge Plan Discharge Items Patient Disposition: Home - Self-Care Reason For Visit: PALPITATIONS, DIAPHORESIS Discharge Diagnosis: Palpitation, likely secondary to nonsustained V. tach. Holter monitor will be arranged. Condition on Discharge: Fair Activity: Resume your previous activity Non-emergency contact: Primary Care Provider Call non-emergency contact if: you have any medication questions and your symptoms worsen Follow-up/Referrals: Silvia Mccabe MD [Primary Care Provider] - (PLEASE CALL YOUR PRIMARY CARE PROVIDER TO SCHEDULE A HOSPITAL DISCHARGE FOLLOW-UP APPOINTMENT WITHIN 7-10 DAYS) Diet: Heart Healthy Addtl Attending Provider Instructions: Advised to follow-up with PCP in 1 week Holter monitor will be arranged. Please expect a call to schedule Pending Studies at Discharge: No Stand-Alone Forms: My [facility] Medications and DC Order Prescriptions: Continued alendronate 70 mg tablet 70 mg PO WK Rx Instructions: Tues Myrbetriq 50 mg tablet extended release 24 hr 50 mg PO DAILY Qty: 90 3RF bupivacaine HCl 0.25 % (2.5 mg/mL) solution 0 mg Infiltration CONTINOUS pravastatin 20 mg tablet 20 mg PO DAILY oxycodone-acetaminophen [Percocet] 10-325 mg tablet 1 tab PO BID MDD 2 TABS/24 HOURS PRN (Reason: Pain) Rx Instructions: 2 tabs PO Daily PRN; cetirizine 10 mg tablet 10 mg PO DAILY PRN (Reason: Congestion) hydromorphone 1 mg/mL Solution 0 mg subcut CONT Patient Comments: FOLLOWS WITH DR. MCCARTY AT [facility] Rx Instructions: CONTINUOUS INFUSION VIA PUMP aspirin 81 mg Tablet,Delayed Release (Dr/Ec) 81 mg PO QAM fluticasone propionate 50 mcg/actuation [place],Suspension 1 spray INTRANASAL QAM lisinopril 20 mg tablet 20 mg PO DAILY Discharge Orders: Discharge Order (Routine); Ordered 11/18/23 Ordered By: Ramon Kellogg Admission Data Admit Date/Time: 11/16/23 17:45 Attending Provider: Ramon Kellogg Admit Provider: Enrique Murphy Primary Care Provider: Silvia Mccabe Other Providers: Enrique Murphy Other Interventions: Discharge Summary Assessment (RN) Last Done: 11/18/23 10:55 Coding Level of Care Code 23225 INP/OBS DISCH >30 MIN Diagnoses Palpitations R00.2
--- OUTSIDE RECORDS SUMMARY | 2023-11-18 18:43 | External Medical Summary | Continuity of Care Document ---
Author Name Unknown Organization [address] [place] [phone] Encounter [facility] [id number] Date(s): 10/25/23 - 10/25/23 [facility] 0 [facility] 207 [facility] [address] [id number] [phone] Encounter Diagnosis Hypertension(Discharge Diagnosis) - 10/25/23 Hyperlipidemia(Discharge Diagnosis) - 10/25/23 Chronic kidney disease (CKD), stage III (moderate)(Discharge Diagnosis) - 10/25/23 Ankylosing spondylitis(Discharge Diagnosis) - 10/25/23 Paroxysmal SVT (supraventricular tachycardia)(Discharge Diagnosis) - 10/25/23 Mild pulmonary hypertension(Discharge Diagnosis) - 10/25/23 Gait disturbance(Discharge Diagnosis) - 10/25/23 Discharge Disposition: Home or Self Care Attending Physician: MD Mccabe Madhavi Allergies, Adverse Reactions, Alerts Substance Reaction Severity Status ibuprofen any doses 800mg or h igher can't have facial swelling Active iodine topical rash Active Betadine rash Active Vioxx hand swelling facial swelling Active celecoxib facial swelling Active shellfish rash Active IVP dye Anaphylaxis facial swelling sneezing Active Lyrica hand/face swelling Active Assessment and Plan Extracted from: Title:Office Visit Note Author:MD Eliot, Yadiel i Date:10/25/23 1.Hypertension bp controlled. continue same meds recheck bmp ordered 2.Hyperlipidemia continue statin. follow lft ordered 3.Chronic kidney disease (CKD), stage III (moderate) stable kidney function. recheck bmp ordered. 4.Ankylosing spondylitis per rheum and pain mx. 5.Paroxysmal SVT (supraventricular tachycardia) per cardio 6.Mild pulmonary hypertension per cardio 7.Gait disturbance no changes. f/u 6mths. Time: 30 mins 2- pre-visit chart review 25- visit, inclusive of history, exam, and discussion of assessment/plan 3- post-visit documentation/orders/coordination of care Immunizations Given and Recorded Vaccine Date Status Refusal Reason RSV vaccine preF3, recombinant 05/21/23 Recorded influenza virus vaccine, inactivated 03/12/23 Roberto rded influenza virus vaccine, inactivated 05/08/22 Roberto rded influenza virus vaccine, inactivated 04/15/21 Roberto rded influenza virus vaccine, inactivated 05/05/20 Roberto rded influenza virus vaccine, inactivated 06/16/19 Give n influenza virus vaccine, inactivated 05/27/18 Give n influenza virus vaccine, inactivated 07/12/17 Give n influenza virus vaccine, inactivated 06/12/16 Give n influenza virus vaccine, inactivated 05/24/15 Give n influenza virus vaccine, inactivated 07/21/14 Give n influenza virus vaccine, inactivated 03/28/13 Give n influenza virus vaccine, inactivated 03/28/12 Give n SARS-CoV-2 (COVID-19) mRNA BNT-162b2 vax 1 04/20/21 Recorded SARS-CoV-2 (COVID-19) mRNA BNT-162b2 vax 2 09/11/20 Recorded SARS-CoV-2 (COVID-19) mRNA BNT-162b2 vax 3 08/21/20 Recorded zoster vaccine, inactivated 08/27/19 Given zoster vaccine, inactivated 06/16/19 Given pneumococcal 13-valent vaccine 05/24/15 Given tetanus/diphtheria/pertuss, acel (Tdap) 07/21/14 G iven zoster vaccine live 06/15/14 Recorded pneumococcal 23-valent vaccine 07/20/09 Recorded pneumococcal 23-valent vaccine 4 07/01/04 Recorded tetanus toxoids-diphtheria, Td (Adult) 5 11/12/08 Recorded 1Result Comment: 2021-05-19: Historical information-source unspecified 2Result Comment: 2021-05-19: Historical information-source unspecified 3Result Comment: 2021-05-19: Historical information-source unspecified 4Result Comment: 2021-05-19: Historical information-source unspecified 5Result Comment: 2021-05-19: Historical information-source unspecified Medications acetaminophen-oxycodone 325 mg-10 mg oral tablet Start: 09/28/23 13:17:00 EDT, See Instructions, Disp# 60 tab, Refills: 0, TAKE 1 TABLET BY MOUTH TWO TIMES DAILY, Pharmacy: [id number] Start Date: 09/28/23 Status: Ordered alendronate 70 mg oral tablet Start: 09/03/23 16:50:00 EST, 1 tab, PO, q7days, Disp# 4 tab, Refills: 11, Pharmacy: [id number] Start Date: 09/03/23 Status: Ordered aspirin 81 mg oral tablet Start: 03/16/11 8:59:00 EDT, 1 tab, PO, Daily Start Date: 03/16/11 Status: Ordered bupivacaine-hydromorphone 0.0625%-5 mcg/mL-NaCl 0.9% injectable solution Start: 10/08/23 16:02:00 EDT, See Instructions, Refills: 0 Start Date: 10/08/23 Status: Ordered cetirizine 10 mg oral tablet Start: 02/05/20 11:55:00 EDT, 1 tab, PO, Daily Start Date: 02/05/20 Status: Ordered Colace 100 mg oral capsule Start: 09/19/12 10:27:00, 2 cap, PO, Daily, PRN: as needed for constipation Start Date: 09/19/12 Status: Ordered lisinopril 20 mg oral tablet Start: 07/31/23 11:13:00 EST, 1 tab, PO, Daily, Disp# 90 tab, Refills: 5, Pharmacy: [id number] Start Date: 07/31/23 Status: Ordered meclizine 12.5 mg oral tablet Start: 10/08/23 16:31:00 EDT, 1 tab, PO, tid, Disp# 15 tab, May take 1-2 tabs as needed for dizziness every 8 hours, PRN: as needed for dizziness, Pharmacy: [id number] Start Date: 10/08/23 Stop Date: 10/13/23 Status: Ordered Myrbetriq 50 mg oral tablet, extended release Start: 10/19/20 10:06:00 EDT, 1 tab, PO, Daily Start Date: 10/19/20 Status: Ordered Nasal spray Start: 07/25/19 10:43:00 EST, Nasal spray Start Date: 07/25/19 Status: Ordered potassium chloride 20 mEq/15 mL oral liquid Start: 05/25/23 12:11:00 EST, 30 mL, PO, qid, Disp# 3,600 mL, Refills: 3, Pharmacy: [id number] Start Date: 05/25/23 Status: Ordered pravastatin 20 mg oral tablet Start: 10/04/23 13:21:00 EDT, 1 tab, PO, Daily, Disp# 90 tab, Refills: 10, Pharmacy: [id number] Start Date: 10/04/23 Status: Ordered senna oral tablet Start: 08/11/13 12:56:00 EST, 1 - 3 tabs, PO, Daily Start Date: 08/11/13 Status: Ordered Mental Status 10/25/23 Barriers to Learning one year Vision imp airment Mandatory Health Literacy Documentation Yes Health Literacy Communication Barriers N ever Primary Language Mongolian Problem List Condition Confirmation Course Effective Dates Status H ealth Status Informant Gait disturbance Confirmed Active ALLERGIC RHINITIS Confirmed Active Ankylosing spondylitis 1 Confirmed Active Atrophic vaginitis Confirmed Active Chronic constipation Confirmed Active Chronic kidney disease (CKD), stage III (moderate) Confirmed Active Compression deformity of vertebra Confirmed Active DDD (degenerative disc disease) Confirmed Active Presence of intrathecal pump Confirmed Active Diastolic dysfunction Confirmed Active GERD Confirmed Active Hx of fusion of cervical spine Confirmed Active Hyperlipidemia Confirmed Active Hypertension Confirmed Active Hypokalemia Confirmed Active Nocturnal hypoxia Confirmed Active Infected sebaceous cyst Confirmed Active Sacroiliitis Confirmed Active Implantable intrathecal infusion pump present Confirmed Active Failed back syndrome, lumbar 2 Confirmed Active Mild pulmonary hypertension Confirmed Active Hunter's neuroma of both feet Confirmed Active DJD (degenerative joint disease) of knee Confirmed Active Osteopenia 3 Confirmed Active Paroxysmal SVT (supraventricular tachycardia) 4 Confirmed Active Encounter for interrogation of infusion pump Confirmed Active Rosacea Confirmed Active Rotator cuff tendinitis Confirmed Active Renal cyst, right 5 Confirmed 01/28/16 Active Pes planus of both feet Confirmed Active Urge incontinence Confirmed Active Vitamin D deficiency Confirmed Active Weight loss Confirmed Active 1told by analyst programmer but orthopedics doctors don't agree with the diagnosis. doesn't sees analyst programmer regularly. last seen by Dr. Escobar. 2Dr Frederick - Pain Mx. 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 4s/p ablation 2017 5renal ultrasound 12/03/15 Diagnosis Diagnosis Type Effective Dates Health Status Clinical Service Informant Hypertension Discharge Diagnosis 10/25/23 Chronic kidney disease (CKD), stage III (moderate) Discharge Diagnosis 10/25/23 Ankylosing spondylitis Discharge Diagnosis 10/25/23 Paroxysmal SVT (supraventricular tachycardia) Discharge Diagnosis 10/25/23 Mild pulmonary hypertension Discharge Diagnosis 10/25/23 Gait disturbance Discharge Diagnosis 10/25/23 Hyperlipidemia Discharge Diagnosis 10/25/23 Procedures Procedure Date Related Diagnosis Body Site Status Colonoscopy 1, 2, 3 09/25/23 Compl eted Injection of sacroiliac joint 4 07/13/23 Completed Procedure 5 03/01/23 Completed Procedure 6 11/29/22 Completed Excision biopsy 7 04/12/22 Complet ed Surgery 8 12/2021 Completed Bilateral digital screening mammogram tomosynthesis with synthetic 2D with CAD 9 12/07/21 Completed DEXA - dual energy X-ray absorptiometry 10 11/10/21 Completed REFILL/MAINT PUMP/RESVR SYST 11/02/21 Completed Radiofrequency ablation of n erve of sacroiliac joint using fluoroscopic guidance 11 02/21/21 Completed Nerve block with injection o f lumbar spine using fluoroscopic guidance 12/03/20 Completed Nerve block with injection o f lumbar spine using fluoroscopic guidance 10/19/20 Completed REFILL/MAINT PUMP/RESVR SYST 09/29/20 Completed Polysomnography 12 09/22/20 Comple jose Mammogram 13 08/05/20 Completed Injection 14 07/19/20 Completed REFILL/MAINT PUMP/RESVR SYST 06/16/20 Completed Refilling of implanted drug reservoir 15 11/10/19 Completed Epidural steroid injection 16 10/06/19 Completed Refilling of implanted drug reservoir 17 10/06/19 Completed Blepharoplasty 05/22/19 Completed Chest x-ray 18 03/24/[address] of chest without contrast 03/24/19 Completed REFILL/MAINT PUMP/RESVR SYST 11/11/18 Completed REFILL/MAINT PUMP/RESVR SYST 08/07/18 Completed Mammogram 20 07/23/18 Completed Refilling of implanted drug reservoir 04/16/18 Completed US scan of lower leg 21 12/25/17 C ompleted Venous doppler ultrasonograp hy right lower extremity 22 12/25/17 Completed X-ray of right knee 23 12/25/17 Co mpleted Cardiac ablation system 11/2017 C ompleted Epidural steroid injection 10/11/17 Completed Chest X-ray 24 10/02/17 Completed Refilling of implanted drug reservoir 08/29/17 Completed Ultrasound scan of bladder a nd kidneys 25 06/26/17 Completed Mammogram - screening 26 05/28/17 Completed Ultrasound of kidneys and bladder 27 07/04/16 Completed Mammogram 28 05/23/16 Completed Refilling and maintenance of implantable pump or reservoir for drug delivery, spinal (intrathecal, epidural) or brain (intraventricular), includes electronic analysis of pump, when performed; requiring skill of a physician or other qualified health care p 04/11/16 Completed Elbow X-ray left 29 01/03/16 Compl eted Elbow X-ray 30 12/15/15 Completed Ultrasound renal 31 12/05/15 Compl eted Electronic analysis of progr ammable, implanted pump for intrathecal or epidural drug infusion (includes evaluation of reservoir status, alarm status, drug prescription status); with reprogramming and refill (requiring skill of a physician or other qualifi 12/02/15 Completed Bone density scan 32 08/20/15 Comp leted Refilling and maintenance of implantable pump or reservoir for drug delivery, spinal (intrathecal, epidural) or brain (intraventricular), includes electronic analysis of pump, when performed; requiring skill of a physician or other qualified health care p 07/29/15 Completed Mammogram 33 05/20/15 Completed Injection of facet joint 34 01/05/15 Completed Refilling and maintenance of implantable pump or reservoir for drug delivery, spinal (intrathecal, epidural) or brain (intraventricular), includes electronic analysis of pump, when performed; requiring skill of a physician or other qualified health care p 10/19/14 Completed Refilling and maintenance of implantable pump or reservoir for drug delivery, spinal (intrathecal, epidural) or brain (intraventricular), includes electronic analysis of pump, when performed; 05/27/14 Completed Mammogram 35 05/19/14 Completed Colonoscopy 36 07/28/13 Completed mammo 37 03/12/13 Completed bone desnity 10/03/12 Completed cataract removal, left eye Completed cervical spinal fusion x Completed cholecystecomy Completed Closed fracture of left radial head 38 Completed Epidural injection of lumbar spine using fluoroscopic guidance Comp leted Fracture of orbital floor Completed lumbar spinal fusion - x 6 Completed pain pump implantation Co mpleted Pump Completed Refilling and maintenance of implantable pump or reservoir for drug delivery, spinal (intrathecal, epidural) or brain (intraventricular), includes electronic analysis of pump, when performed; Completed ruptured tubal - surgery Completed 1Colon polyp at 50cm, polypectomy Tubular adenoma Melanosis coli 2Repeat colonoscopy in 5 years if your health is good. 3- One 2 mm polyp at 50 cm proximal to the anus, removed with a cold biopsy forceps. Resected and retrieved. - Melanosis in the colon. - Redundant colon. - The examination was otherwise normal on direct and retroflexion views. 4Left sacroiliac joint injection 5Pump refill 6Left SI Joint injection and pump refill 7abdomen 8carpal tunnel 9Impression: ACR BI RADS CATEGORY 2: Benign There is no mammographic evidence of malignancy. A 1 year screening mammogram is recommended. (12/08/2022) The patient will receive written notification of the results. 10femur neck left: -1.9 femur neck right: -3.3 femur left total: -1.8 femur right total: -3.0 forearm radius: -4.2 z-score: -1.6 11left 12No evidence of clinically significant sleep apnea. The patient did have nocturnal hypoxemia corrected with low-flow oxygen 1 liter/minute. 13ACR BI RADS cat 2 Benign No evidence of malignancy 14LEFT Sacroiliac Joint INjection 15hydromorphone/bupivicaine 16Transforaminal 17Intrathecal 18No active disease in the chest 19Cardiomegaly with no active disease in the chest 20There is no mammographic evidence of malignancy. A one year screening is recommended. 21No DVT in right lower extremity. 22no evidence of deep venous thrombus within the right lower extremity 23No acute fractures osteopenia mild osteoarthritic changes minimal left-sided chondrocalcinosis 24Technically limited study. No evidence of failure. Suspected right lower olobe bronchiectasis. Right basilar air space opacities, likely atelectatic. Non- specific increased density in the paratracheal region. Short term x-ray or Chest CT recommended 25Impression: 1. Nonobstructing left renal calculi. 2. Minimally complex cystic lesion in the right kidney. Although lesion is unchanged in size at oneyear. 26WNL - 1 yr 271. The kidneys demonstrate cortical atrophy and are without hydronephrosis. 2. The bladder is normal as visualized 3. There is a 6.0cm minimally complex cystic lesion present in the right kidney. This is similar inappearance to the 12/03/2015 examination. 1 additional precautionary follow-up examination is recommended in one years time. 28wnl/repeat 1 yr 29Healing minimally angulated fracture of the radial head and neck as compared to 12/15/2015. Alignmentappears unchanged 30Minimally angulated radial head fracture and joint effusion. 311. no hydronephrosis 2. 5.2 cm mildly complex right renal cyst which contains a slightly thickened septation. This is probably benign but a follow-up ultrasound in 6 months is recommended to ensure stability 3. post void residual of 85 cc 32osteopenic - fx risk moderate - repeat one year 33No mammographic evidence of malignancy. 1 year screening recomended 34Lumbar 35wnl/repeat 1 yr 36normal results repeat 10 yr 37repeat 1 yr , wnl 38No surgical intervention Vital Signs Most recent to oldest [Reference Range]: 1 Patient Weight 66.8 kg (10/25/23 10:30 AM) Temperature [36.5-37.9 DegC] 36.6 DegC (10/25/23 10:30 AM) Heart Rate 68 bpm (10/25/23 10:30 AM) Respiratory Rate 20 br/min (10/25/23 10:30 AM) Blood Pressure 128/72mmHg (10/25/23 10:30 AM) Cuff Pulse Pressure 56 mmHg (10/25/23 10:30 AM) Social History Social History Type Response Tobacco 1 Smoking Status Former Smoker, quit > 1 yr Sex Female 1smoked for 15yrs - 2ppd. FCM Outpt Note * MD Eliot, Silvia: PERFORM Event Display: FCM Outpt Note Authored Date: Chief Complaint 6 month follow up History of Present Illness here for routine f/u. doing well. no new concerns. has been having upper back pain - working with pain mx for other options for pain control. was trying to see the sun during eclipse and hurt the neck. Physical Exam Vitals & Measurements T:36.6C HR:68(Monitored) RR:20 BP:128/72 SpO2:98% WT:66.800kg(Dosing) WT:66.8kg PHQ2 Data(Data Documented on:10/25/2023 10:28) Emotional health assessment NEGATIVE comfortable. RRR CTA Assessment/Plan 1.Hypertension bp controlled. continue same meds recheck bmp ordered 2.Hyperlipidemia continue statin. follow lft ordered 3.Chronic kidney disease (CKD), stage III (moderate) stable kidney function. recheck bmp ordered. 4.Ankylosing spondylitis per rheum and pain mx. 5.Paroxysmal SVT (supraventricular tachycardia) per cardio 6.Mild pulmonary hypertension per cardio 7.Gait disturbance no changes. f/u 6mths. Time: 30 mins 2- pre-visit chart review 25- visit, inclusive of history, exam, and discussion of assessment/plan 3- post-visit documentation/orders/coordination of care Problem List/Past Medical History Ongoing ALLERGIC RHINITIS Ankylosing spondylitis Atrophic vaginitis Chronic constipation Chronic kidney disease (CKD), stage III (moderate) Compression deformity of vertebra DDD (degenerative disc disease) Diastolic dysfunction DJD (degenerative joint disease) of knee Encounter for interrogation of infusion pump Failed back syndrome, lumbar Gait disturbance GERD Hx of fusion of cervical spine Hyperlipidemia Hypertension Hypokalemia Implantable intrathecal infusion pump present Infected sebaceous cyst Mild pulmonary hypertension Hunter's neuroma of both feet Nocturnal hypoxia Osteopenia Paroxysmal SVT (supraventricular tachycardia) Pes planus of both feet Presence of intrathecal pump Renal cyst, right Rosacea Rotator cuff tendinitis Sacroiliitis Urge incontinence Vitamin D deficiency Weight loss Historical Accidental fall Hypokalemia Injury of right shoulder Knee pain Left arm pain Left radial head fracture Orbital floor fracture Pain and swelling of right lower leg Procedure/Surgical History Colonoscopy| Service Date: 09/25/2023Injection of sacroiliac joint| Service Date: 3Procedure| Service Date: 03/01/2023rocedure| Service Date: 11/29/2022Excision biopsy| Service Date: 04/12/2022urgery| Service Date: ilateral digital screening mammogram tomosynthesis with synthetic 2D with CAD| Service Date: 12/07/2021EXA - dual energy X-ray absorptiometry| Service Date: 2REFILL/MAINT PUMP/RESVR SYST| Service Date: 04/20/2022Radiofrequency ablation of nerve of sacroiliac joint using fluoroscopic guidance| Service Date: 02/21/2021Nerve block with injection of lumbar spine using fluoroscopic guidance| Service Date: 12/03/2020Nerveblock with injection of lumbar spine using fluoroscopic guidance| Service Date: 1REFILL/MAINT PUMP/RESVR SYST| Service Date: 09/29/2020olysomnography| Service Date: 09/22/2020Mammogram| Service Date: 08/05/2020Injection| Service Date: 07/19/2020EFILL/MAINT PUMP/RESVR SYST|Service Date: 06/16/2020Refilling of implanted drug reservoir| Service Date: 11/10/2019Epidural steroid injection| Service Date: 10/06/2019Refilling of implanted drug reservoir| Service Date: 10/06/2019Blepharoplasty| Service Date: 05/22/2019CT of chest without contrast| Service Date: 03/24/2019Chest x-ray| Service Date: 03/24/2019REFILL/MAINT PUMP/RESVR SYST| Service Date: REFILL/MAINT PUMP/RESVR SYST| Service Date: 08/07/2018Mammogram| Service Date: 07/23/2018Refilling of implanted drug reservoir| Service Date: 04/16/2018Venous doppler ultrasonography right lower extremity| Service Date: 12/25/2017X-ray of right knee| Service Date: 12/25/2017US scan of lower leg| Service Date: 12/25/2017Cardiac ablation system| Service Date: 11/2017Epidural steroid injection| Service Date: 10/11/2017Chest X-ray| Service Date: 10/02/2017Refilling of implanted drug reservoir| Service Date: 08/29/2017Ultrasound scan of bladder and kidneys|Service Date: 06/26/2017Mammogram - screening| Service Date: 05/28/2017Ultrasound of kidneys and bladder| Service Date: 07/04/2016Mammogram| Service Date: 05/23/2016Refilling and maintenance of implantable pump or reservoir for drug delivery, spinal (intrathecal, epidural) or brain (intraventricular), includes electronic analysis of pump, when performed; requiring skill of a physicianor other qualified health care p| Service Date: 04/11/2016Elbow X-ray left| Service Date: 01/03/2016Elbow X-ray| Service Date: 12/15/2015Ultrasound renal| Service Date: 12/05/2015Electronic analysis of programmable, implanted pump for intrathecal or epidural drug infusion (includes evaluation of reservoir status, alarm status, drug prescription status); with reprogramming and refill (requiring skill of a physician or other qualifi| Service Date: 12/02/2015Bone density scan| Service Date: 08/20/2015Refilling and maintenance of implantable pump or reservoir for drug delivery, spinal (intrathecal, epidural) or brain (intraventricular), includes electronic analysis of pump, when performed; requiring skill of a physician or other qualified health care p| Service Date: 07/29/2015Mammogram| Service Date: 05/20/2015Injection of facet joint| Service Date: 01/05/2015Refilling and maintenance of implantable pump or reservoir for drug delivery, spinal (intrathecal, epidural) or brain (intraventricular), includes electronic analysis of pump, when performed; requiring skill of a physician or other qualified health care p| Service Date: 10/19/2014Refilling and maintenance of implantable pump or reservoir for drug delivery, spinal (intrathecal, epidural) or brain (intraventricular), includes electronic analysis of pump, when performed;| Service Date: 05/27/2014Mammogram| Service Date: 05/19/2014Colonoscopy| Service Date: 07/28/2013mammo| Service Date: 0 03/12/2013one desnity| Service Date: 10/03/2012pain pump implantationcholecystecomyruptured tubal - surgerycervical spinal fusion xlumbar spinal fusion - x 6Epidural injection of lumbar spine using fluoroscopic guidancecataract removal, left eyeRefilling and maintenance of implantable pump or reservoir for drug delivery, spinal (intrathecal, epidural) or brain(intraventricular), includes electronic analysis of pump, when performed;PumpFracture of orbital floorClosed fracture of left radial head Medications acetaminophen-oxycodone(acetaminophen-oxycodone 325 mg-10 mg oral tablet), See Instructions alendronate(alendronate 70 mg oral tablet), 1 tab, PO, q7days aspirin(aspirin 81 mg oral tablet), 81 mg= 1 tab, PO, Daily bupivacaine-hydromorphone(bupivacaine-hydromorphone 0.0625%-5 mcg/mL-NaCl 0.9% injectable solution), See Instructions cetirizine(cetirizine 10 mg oral tablet), 10 mg= 1 tab, PO, Daily docusate(Colace 100 mg oral capsule), 200 mg= 2 cap, PO, Daily, PRN lisinopril(lisinopril 20 mg oral tablet), 1 tab, PO, Daily meclizine(meclizine 12.5 mg oral tablet), 12.5 mg= 1 tab, PO, tid, PRN mirabegron(Myrbetriq 50 mg oral tablet, extended release), 50 mg= 1 tab, PO, Daily potassium chloride(potassium chloride 20 mEq/15 mL oral liquid), 30 mL, PO, qid pravastatin(pravastatin 20 mg oral tablet), 1 tab, PO, Daily senna(senna oral tablet), 1 - 3 tabs, PO, Daily unknown medication(Nasal spray) Allergies Betadinerash IVP dyeAnaphylaxis, facial swelling, sneezing Lyricahand/face swelling Vioxxhand swelling, facial swelling celecoxibfacial swelling ibuprofenany doses 800mg or higher can't have, facial swelling iodine topicalrash shellfishrash Social History Smoking Status Former Smoker, quit > 1 yr Alcohol - Comments: none 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 keeps herself pretty active. Home/Environment Lives with:Spouse - Comments: Other son in [place]- one grandson one son with autism still lives with them. Nutrition/Health Type of diet:Regular Other - Comments: dexa 10/03/12 last colo - 2002, dexa - 2 yrs ago. mammogram - uptodate. pneumovax - uptodate. Substance Abuse - Comments: none Tobacco - Comments: smoked for 15yrs - 2ppd. Family History Alcoholism: Father. Breast cancer: Mother. Cancer: Father and Sister. Health Status Family Member(s) Immunizations Vaccine Date Status RSV vaccine preF3, recombinant 05/21/2023 Recorded influenza virus vaccine, inactivated 03/12/2023 Recorded influenza virus vaccine, inactivated 05/08/2022 Recorded SARS-CoV-2 (COVID-19) mRNA BNT-162b2 vax 04/20/2021 Recorded Comments : 2021-05-19: Historical information-source unspecified influenza virus vaccine, inactivated 04/15/2021 Recorded SARS-CoV-2 (COVID-19) mRNA BNT-162b2 vax 09/11/2020 Recorded Comments : 2021-05-19: Historical information-source unspecified SARS-CoV-2 (COVID-19) mRNA BNT-162b2 vax 08/21/2020 Recorded Comments : 2021-05-19: Historical information-source unspecified influenza virus vaccine, inactivated 05/05/2020 Recorded zoster vaccine, inactivated 08/27/2019 Given zoster vaccine, inactivated 06/16/2019 Given influenza virus vaccine, inactivated 06/16/2019 Given influenza virus vaccine, inactivated 05/27/2018 Given influenza virus vaccine, inactivated 07/12/2017 Given influenza virus vaccine, inactivated 06/12/2016 Given influenza virus vaccine, inactivated 05/24/2015 Given pneumococcal 13-valent vaccine 05/24/2015 Given tetanus/diphtheria/pertuss, acel (Tdap) 07/21/2014 Given influenza virus vaccine, inactivated 07/21/2014 Given zoster vaccine live 06/15/2014 Recorded influenza virus vaccine, inactivated 03/28/2013 Given influenza virus vaccine, inactivated 03/28/2012 Given pneumococcal 23-valent vaccine 07/20/2009 Recorded tetanus toxoids-diphtheria, Td (Adult) 11/12/2008 Recorded Comments : 2021-05-19: Historical information-source unspecified pneumococcal 23-valent vaccine 07/01/2004 Recorded Comments : 2021-05-19: Historical information-source unspecified Recommendations Health Maintenance Pending(in the next year) OverDue Medicare Annual Wellness Visit due05/25/23and every 1year Due Adult COVID-19 Vaccination due10/25/23Unknown Frequency Adult Social Determinants of Health Screening due10/25/23Unknown Frequency Due In Future Adult Influenza Vaccine not due until01/13/24and every 1year Satisfied(in the past 1 year) Satisfied Adult Influenza Vaccine on03/12/23.Satisfied by PIERCE No Kelly Body Mass Index on07/26/23.Satisfied by CHUCK Gallo Angela Breast Cancer Screening on12/08/22.Satisfied by CHUCK Perdomo Vanessa T Hepatitis C Screening on10/23/23.Satisfied by Contributor_system, [employer] Electronic Signature on File Electronically Reviewed/Signed by: Silvia Mccabe MD Author Signature Dt/Tm:10/25/2023 03:01 PM Department of Family Medicine [place] Patient Care team information Care Team Personnel Name: MD Suresh, Saurabh Position: Physician - Anesthesiologist Member Role: Lifetime Relationship Address: Address: [address] [place] [address] [place] [address] [place] Name: ALLAN WrightUsha Position: Pharmacist BCMA Member Role: Pharmacy - Lifetime Address: Address: [address] [address] [place] Name: TE Cason Christina L Position: Physician - Podiatry Member Role: Lifetime Relationship Address: Address: [address] [place] [address] [place] Name: ALLAN OrtegaPanchito Position: Pharmacist Member Role: Pharmacy - Lifetime Address: Address: [facility] [address] [place] [address] [place] Name: ALLAN DobbsMarisela Position: Pharmacist Member Role: Pharmacy - Lifetime Address: Address: [facility] [address] [place] [address] [place] Name: DO Acosta Scott A Position: Referring DIRECT Member Role: Lifetime Relationship Address: Address: [address] [facility] [place] [address] [place] Care Team Related Persons Name: BERNABE FIELDS Address: home [address] [place], [phone] Name: SHELBIE FIELDS Address: home [address] [facility] [place] [phone]"
--- OUTSIDE RECORDS SUMMARY | 2023-11-18 18:44 | External Medical Summary | Continuity of Care Document ---
Author Name Unknown Organization [facility] [address] Address [address] [place], [place] [id number] [id number]): [facility]/23/23 - 10/23/23 [facility] [address] [facility] [address] 1 [facility] 303 [facility] 1 [place], [place] [phone] Encounter Diagnosis Essential (primary) hypertension(Final) - Hyperlipidemia, unspecified(Final) - Encounter for screening for other viral diseases(Final) - Discharge Disposition: Home or Self Care Attending Physician: MD Mccabe Madhavi Referring Physician: MD Mccabe Madhavi Allergies, Adverse Reactions, Alerts Substance Reaction Severity Status ibuprofen any doses 800mg or h igher can't have facial swelling Active Vioxx hand swelling facial swelling Active Lyrica hand/face swelling Active iodine topical rash Active Betadine rash Active shellfish rash Active celecoxib facial swelling Active IVP dye Anaphylaxis facial swelling sneezing Active Immunizations Given and Recorded Vaccine Date Status [...] TABLET BY MOUTH TWO TIMES DAILY, Pharmacy: [id number] Start Date: 09/28/23 Status: Ordered alendronate 70 mg oral tablet Start: 09/03/23 16:50:00 EST, 1 tab, PO, q7days, Disp# 4 tab, Refills: 11, Pharmacy: [facility] Start Date: 09/03/23 Status: [...] Daily, Disp# 90 tab, Refills: 5, Pharmacy: [facility] Start Date: 07/31/23 Status: Ordered meclizine 12.5 mg oral tablet Start: 10/08/23 16:31:00 EDT, 1 tab, PO, tid, Disp# 15 tab, May take 1-2 tabs as needed for dizziness every 8 hours, PRN: as needed for dizziness, Pharmacy: [facility] Start Date: 10/08/23 Stop [...] qid, Disp# 3,600 mL, Refills: 3, Pharmacy: [facility] Start Date: 05/25/23 Status: Ordered pravastatin 20 mg oral tablet Start: 10/04/23 13:21:00 EDT, 1 tab, PO, Daily, Disp# 90 tab, Refills: 10, Pharmacy: [facility] Start Date: 10/04/23 Status: Ordered senna oral tablet Start: 08/11/13 12:56:00 EST, 1 - 3 tabs, PO, Daily Start Date: 08/11/13 Status: Ordered Problem List Condition Confirmation Course Effective Dates [...] Active Weight loss Confirmed Active 1told by printing mechanist but orthopedics doctors don't agree with the diagnosis. doesn't sees printing mechanist regularly. last seen by Dr. Escobar. 2Dr Frederick - Pain Mx. 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 4s/p ablation 2017 5renal ultrasound 12/03/15 Procedures Procedure Date Related Diagnosis Body Site [...] 03/24/[address] of chest without contrast 19 03/24/19 Completed REFILL/MAINT PUMP/RESVR SYST 11/11/18 Completed [...] 1 yr , wnl 38No surgical intervention Results Laboratory List Name Date Comprehensive Metabolic Panel (COMP META B PANEL) 10/23/23 Hepatitis C Antibody (HEP C AB) 10/23/23 Most recent to oldest [Reference Range]: 1 eGFR CKD-EPI [>60 mL/min/1.73 m2] 56 mL/ min/1.73 m2 1 *LOW* (10/23/23 10:24 AM) Estimated CrCl 40.19 mL/min (10/23/23 11:23 AM) Anion Gap [5-14 mmol/L] 7 mmol/L (10/23/23 10:24 AM) Alb [3.5-5.0 g/dL] 4.4 g/dL (10/23/23 10:24 AM) Alk Phos [38-126 unit/L] 33 unit/L *LOW* (10/23/23 10:24 AM) ALT [<35 unit/L] 18 unit/L (10/23/23 10:24 AM) AST [15-46 unit/L] 30 unit/L (10/23/23 10:24 AM) BUN [7-20 mg/dL] 16 mg/dL (10/23/23 10:24 AM) Ca [8.4-10.2 mg/dL] 9.5 mg/dL (10/23/23 10:24 AM) Cl- [96-107 mmol/L] 104 mmol/L (10/23/23 10:24 AM) HCO3 [22-30 mmol/L] 30 mmol/L (10/23/23 10:24 AM) Cret [0.60-1.00 mg/dL] 1.01 mg/dL *HI* (10/23/23 10:24 AM) Glu [74-106 mg/dL] 86 mg/dL (10/23/23 10:24 AM) HCV Ab [NR] NONREACTIVE *Unknown* (10/23/23 10:24 AM) K [3.5-5.1 mmol/L] 4.9 mmol/L (10/23/23 10:24 AM) Na [137-145 mmol/L] 141 mmol/L (10/23/23 10:24 AM) T Bili [0.2-1.3 mg/dL] 0.7 mg/dL (10/23/23 10:24 AM) Prot [6.3-8.2 g/dL] 7.2 g/dL (10/23/23 10:24 AM) 1Result Comment: Testing Performed By: Dept of Pathology [facility] [address], [address], [place] [address] Social History Social History Type Response Tobacco 1 Smoking Status Former Smoker, quit > 1 yr Sex Female 1smoked for 15yrs - 2ppd. Patient Care team information Care Team Personnel Name: MD Prince Vitaly Position: Physician - Anesthesiologist Member Role: Lifetime Relationship Address: Address: [address] [facility] [address] [place] [address] [place] Name: Aristides Wright Kimberly Position: Pharmacist BCMA Member Role: Pharmacy - Lifetime Address: Address: [facility] [address] [place] [address] [place] Name: TE Cason Christina L Position: Physician - Podiatry Member Role: Lifetime Relationship Address: Address: [address] [place] [address] [place] Name: Aristides Ortega Shailja Position: Pharmacist Member Role: Pharmacy - Lifetime Address: Address: [address] [address] [place] Name: Aristides Dobbs Paula Position: Pharmacist Member Role: Pharmacy - Lifetime Address: Address: [facility] [address] [place] [address] [place] Name: DO Acosta Scott A Position: Referring DIRECT Member Role: Lifetime Relationship Address: Address: [address] [place] [address] [place] Care Team Related Persons Name: BERNABE FIELDS Address: home [address] [facility] [address] [place], [phone] Name: SHELBIE FIELDS Address: home [address] [facility] [place] [phone]
--- OUTSIDE RECORDS SUMMARY | 2023-11-18 18:44 | External Medical Summary | Continuity of Care Document ---
Author Name Unknown Organization [facility] [address] Address [address] [place], [place] [id number] [id number] Date(s): 10/09/23 - 10/09/[address] [facility] [address] [facility] [address] [place], [phone] Encounter Diagnosis Dizziness and giddiness(Final) - Palpitations(Final) - Discharge Disposition: Home or Self Care Attending Physician: DO Gama Kristen M Referring Physician: DO Gama Kristen M Allergies, Adverse Reactions, Alerts Substance Reaction Severity [...] TABLET BY MOUTH TWO TIMES DAILY, Pharmacy: [facility] Start Date: 09/28/23 Status: Ordered alendronate 70 mg oral tablet Start: 09/03/23 16:50:00 EST, 1 tab, PO, q7days, Disp# 4 tab, Refills: 11, Pharmacy: [facility] Start Date: 09/03/23 Status: Ordered [...] Daily, Disp# 90 tab, Refills: 5, Pharmacy: [facility] Start Date: 07/31/23 Status: Ordered meclizine 12.5 mg oral tablet Start: 10/08/23 16:31:00 EDT, 1 tab, PO, tid, Disp# 15 tab, May take 1-2 tabs as needed for dizziness every 8 hours, PRN: as needed for dizziness, Pharmacy: [facility] Start Date: 10/08/23 Stop Date: [...] qid, Disp# 3,600 mL, Refills: 3, Pharmacy: [facility] Start Date: 05/25/23 Status: Ordered pravastatin 20 mg oral tablet Start: 10/04/23 13:21:00 EDT, 1 tab, PO, Daily, Disp# 90 tab, Refills: 10, Pharmacy: [facility] Start Date: 10/04/23 Status: Ordered [...] Active Weight loss Confirmed Active 1told by personal service workers but orthopedics doctors don't agree with the diagnosis. doesn't sees personal service workers regularly. last seen by Dr. Escobar. 2Dr Frederick - Pain Mx. [place] 3Unable to get dexa scan due to [...] surgical intervention Results Laboratory List Name Date Complete Blood Count w Differential (CBC ,DIFFH) 10/09/23 Comprehensive Metabolic Panel (COMP META B PANEL) 10/09/23 Magnesium Level (MAGNESIUM) 10/09/23 Thyroid Stimulating Hormone (TSH) 4 Most recent to oldest [Reference Range]: 1 eGFR CKD-EPI [>60 mL/min/1.73 m2] 54 mL/ min/1.73 m2 1 *LOW* (10/09/23 11:14 AM) Estimated CrCl 39.03 mL/min (10/09/23 12:26 PM) MPV [9.0-12.2 fL] 11.6 fL (10/09/23 11:14 AM) Immature Gran% 0.5 % (10/09/23 11:14 AM) Neut% 57.7 % (10/09/23 11:14 AM) Lymph% 31.6 % (10/09/23 11:14 AM) Lassen% 9.2 % (10/09/23 11:14 AM) Baso% 0.7 % (10/09/23 11:14 AM) Eos% 0.3 % (10/09/23 11:14 AM) Immat Gran, Abs [0-0.4 K/uL] 0.03 K/uL (10/09/23 11:14 AM) Neut, Abs [2.0-7.7 K/uL] 3.38 K/uL (10/09/23 11:14 AM) Lymph, Abs [1.0-3.4 K/uL] 1.85 K/uL (10/09/23 11:14 AM) Lassen, Abs [0-1.0 K/uL] 0.54 K/uL (10/09/23 11:14 AM) Baso, Abs [0-0.1 K/uL] 0.04 K/uL (10/09/23 11:14 AM) Eos, Abs [0-0.5 K/uL] 0.02 K/uL (10/09/23 11:14 AM) Type of Diff: AUTO *Unknown* (10/09/23 11:14 AM) RDW [11.5-14.2 %] 13.0 % (10/09/23 11:14 AM) Anion Gap [5-14 mmol/L] 5 mmol/L (10/09/23 11:14 AM) Alb [3.5-5.0 g/dL] 4.4 g/dL (10/09/23 11:14 AM) Alk Phos [38-126 unit/L] 33 unit/L *LOW* (10/09/23 11:14 AM) ALT [<35 unit/L] 21 unit/L (10/09/23 11:14 AM) AST [15-46 unit/L] 33 unit/L (10/09/23 11:14 AM) BUN [7-20 mg/dL] 10 mg/dL (10/09/23 11:14 AM) Ca [8.4-10.2 mg/dL] 9.4 mg/dL (10/09/23 11:14 AM) Cl- [96-107 mmol/L] 105 mmol/L (10/09/23 11:14 AM) HCO3 [22-30 mmol/L] 32 mmol/L *HI* (10/09/2314 AM) Cret [0.60-1.00 mg/dL] 1.04 mg/dL *HI* (10/09/23 11:14 AM) Glu [74-106 mg/dL] 99 mg/dL (10/09/2314 AM) Hct [35-44 %] 44.9 % *HI* (10/09/23 11:14 AM) Hgb [11.7-15.0 g/dL] 14.3 g/dL (10/09/2314 AM) K [3.5-5.1 mmol/L] 4.8 mmol/L (10/09/23 11:14 AM) MCH [28-33 pg] 28.8 pg (10/09/23:14 AM) MCHC [32-36 g/dL] 31.8 g/dL *LOW* (10/09/23:14 AM) MCV [81-96 fL] 90.3 fL (10/09/23:14 AM) Mg [1.6-2.3 mg/dL] 2.2 mg/dL 2 (10/09/23 11:14 AM) Na [137-145 mmol/L] 142 mmol/L (10/09/23 11:14 AM) Plts [150-350 K/uL] 228 K/uL (10/09/23 11:14 AM) RBC [3.90-5.00 M/uL] 4.97 M/uL (10/09/23 11:14 AM) T Bili [0.2-1.3 mg/dL] 0.8 mg/dL (10/09/23 11:14 AM) Prot [6.3-8.2 g/dL] 7.4 g/dL (10/09/23 11:14 AM) TSH [0.47-4.68 uIU/mL] 1.20 uIU/mL 3 (10/09/23 11:14 AM) WBC [4.0-10.4 K/uL] 5.86 K/uL (10/09/23 11:14 AM) 1Result Comment: Testing Performed By: Dept of Pathology [facility], [address] [place] [address] 2Result Comment: Testing Performed By: Dept of Pathology [facility], [address] [place] [address] 3Result Comment: Testing Performed By: Dept of Pathology [facility], [address] [place] [address], [place] [address] Social History Social History Type Response Tobacco 1 Smoking Status Never smoked cigaret kitty Sex Female 1smoked for 15yrs - 2ppd. Patient Care team information Care Team Personnel Name: MD Prince Vitaly Position: Physician - Anesthesiologist Member Role: Lifetime Relationship Address: Address: [address] [place] [address] [place] Name: Aristides Wright Kimberly Position: Pharmacist BCMA Member Role: Pharmacy - Lifetime Address: Address: [address] [address] [place] Name: TE Cason Christina L Position: Physician - Podiatry Member Role: Lifetime Relationship Address: Address: [address] [address] [place] Name: Aristides Ortega Shailja Position: Pharmacist Member Role: Pharmacy - Lifetime Address: Address: [address] [address] [place] Name: Aristides Dobbs Paula Position: Pharmacist Member Role: Pharmacy - Lifetime Address: Address: [address] [address] [place] Name: DO Acosta Scott A Position: Referring DIRECT Member Role: Lifetime Relationship Address: Address: [address] [place] [address] Care Team Related Persons Name: BERNABE FIELDS Address: home [address] [facility] [address] [place], [phone] Name: SHELBIE FIELDS Address: home [address] [place] [phone]
--- OUTSIDE RECORDS SUMMARY | 2023-11-18 18:44 | External Medical Summary | Continuity of Care Document ---
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 Name Role Phone Silvia Mccabe Primary Care Physician [phone] Encounter [facility] [id number] Date(s): 08/28/23 - 08/28/23 [facility] [address] [facility] [address], [address], [address] [place]RISTIANO Enriquez [address] [phone] Encounter Diagnosis Failed back syndrome, lumbar(Discharge Diagnosis) - 08/28/23 Sacroiliitis(Discharge Diagnosis) - 08/28/23 Presence of intrathecal pump(Discharge Diagnosis) - 08/28/23 Chronic pain(Discharge Diagnosis) - 08/28/23 Discharge Disposition: Home or Self Care Attending Physician: MD Suresh, [facility] Referring Physician: MD Mccabe Madhavi Allergies, Adverse Reactions, Alerts Substance Reaction Severity Status ibuprofen any doses 800mg or h igher can't have facial swelling Active Lyrica hand/face swelling Active iodine topical rash Active Betadine rash Active shellfish rash Active Vioxx hand swelling facial swelling Active celecoxib facial swelling Active IVP dye [...] 5Result Comment: 2021-05-19: Historical information-source unspecified Medications acetaminophen-oxyCODONE 325 mg-10 mg oral tablet Start: 02/06/23 14:56:00 EDT, See Instructions, Disp# 60 tab, Refills: 0, TAKE 1 TABLET BY MOUTH TWO TIMES DAILY NEEDED, Pharmacy: [id number] Start Date: 02/06/23 Status: Ordered acetaminophen-oxyCODONE 325 mg-10 mg oral tablet Start: 01/01/23 16:24:00 EDT, See Instructions, Disp# 60 tab, Refills: 0, TAKE 1 TABLET BY MOUTH TWO TIMES DAILY NEEDED, Pharmacy: [id number] Start Date: 01/01/23 Status: Ordered acetaminophen-oxycodone 325 mg-10 mg oral tablet Start: 03/22/23 15:57:00 EDT, See Instructions, Disp# 60 tab, Refills: 0, TAKE 1 TABLET BY MOUTH TWO TIMES DAILY NEEDED, Pharmacy: [id number] Start Date: 03/22/23 Status: Ordered acetaminophen-oxycodone 325 mg-10 mg oral tablet Start: 08/20/23 16:43:00 EST, See Instructions, Disp# 60 tab, Refills: 0, TAKE 1 TABLET BY MOUTH TWO TIMES DAILY, Pharmacy: [id number] Start Date: 08/20/23 Status: Ordered acetaminophen-oxyCODONE 325 mg-10 mg oral tablet Start: 11/24/22 15:07:00 EDT, See Instructions, Disp# 60 tab, Refills: 0, TAKE 1 TABLET BY MOUTH TWO TIMES DAILY, NEEDED., Pharmacy: [id number] Start Date: 11/24/22 Status: Ordered acetaminophen-oxycodone 325 mg-10 mg oral tablet Start: 07/17/23 22:06:00 EST, See Instructions, Disp# 60 tab, Refills: 0, TAKE 1 TABLET BY MOUTH TWO TIMES DAILY, Pharmacy: [facility] Start Date: 07/17/23 Status: Ordered acetaminophen-oxycodone 325 mg-10 mg oral tablet Start: 05/04/23 15:40:00 EDT, See Instructions, Disp# 60 tab, Refills: 0, TAKE 1 TABLET BY MOUTH TWO TIMES DAILY NEEDED, Pharmacy: [facility] Start Date: 05/04/23 Status: Ordered acetaminophen-oxyCODONE 325 mg-10 mg oral tablet Start: 10/20/22 12:29:00 EDT, See Instructions, Disp# 60 tab, Refills: 0, TAKE 1 TABLET BY MOUTH TWO TIMES DAILY NEEDED, Pharmacy: [facility] Start Date: 10/20/22 Status: Ordered acetaminophen-oxycodone 325 mg-10 mg oral tablet Start: 06/05/23 21:42:00 EST, See Instructions, Disp# 60 tab, Refills: 0, TAKE 1 TABLET BY MOUTH TWO TIMES DAILY NEEDED, Pharmacy: [facility] Start Date: 06/05/23 Status: Ordered aspirin 81 mg oral tablet Start: 03/16/11 8:59:00 EDT, 1 tab, PO, Daily Start Date: 03/16/11 Status: Ordered cetirizine 10 mg oral tablet Start: 02/05/20 11:55:00 EDT, 1 tab, PO, Daily Start Date: 02/05/20 Status: Ordered Colace 100 mg oral capsule Start: 09/19/12 10:27:00, 2 cap, PO, Daily, PRN: as needed for constipation Start Date: 09/19/12 Status: Ordered Fosamax 70 mg oral tablet Start: 08/25/22 13:36:00 EST, 1 tab, PO, q7days, Disp# 4 tab, Refills: 11, Pharmacy: [facility] Start Date: 08/25/22 Stop Date: 07/27/23 Status: Ordered lisinopril 20 mg oral tablet Start: 07/31/23 11:13:00 EST, 1 tab, PO, Daily, Disp# 90 tab, Refills: 5, Pharmacy: [facility] Start Date: 07/31/23 Status: Ordered mupirocin 2% topical ointment Start: 03/08/22 15:20:00 EDT, 1 appl, topical, Daily, Disp# 22 g, Refills: 1, to abdomen, Pharmacy:[facility] Start Date: 03/08/22 Status: Ordered Myrbetriq 50 mg oral tablet, extended release Start: 10/19/20 10:06:00 EDT, 1 tab, PO, Daily Start Date: 10/19/20 Status: Ordered Nasal spray Start: 07/25/19 10:43:00 EST, Nasal spray Start Date: 07/25/19 Status: Ordered potassium chloride 20 mEq/15 mL oral liquid Start: 05/25/23 12:11:00 EST, 30 mL, PO, qid, Disp# 3,600 mL, Refills: 3, Pharmacy: [facility] Start Date: 05/25/23 Status: Ordered pravastatin 20 mg oral tablet Start: 09/19/22 12:09:00 EST, See Instructions, Disp# 90 tab, Refills: 10, TAKE 1 TABLET BY MOUTH EVERY DAY, Pharmacy: [facility] Start Date: 09/19/22 Status: Ordered senna oral tablet Start: 08/11/13 12:56:00 EST, 1 - 3 tabs, PO, Daily Start Date: 08/11/13 Status: Ordered Sutab oral tablet Start: 07/19/23 10:42:00 EST, See Instructions, Disp# 24 tab, Refills: 0, Follow instructions from endoscopy center, not package insert., Pharmacy: [facility] Start Date: 07/19/23 Status: Ordered Zofran 4 mg oral tablet Start: 07/19/23 10:42:00 EST, 1 tab, PO, bid, Disp# 3 tab, Refills: 0, Take 1 tablet 30 minutes prior to bowel prep as needed for nausea, PRN: as needed for nausea/vomiting, Pharmacy: [id number] Start Date: 07/19/23 Status: Ordered Mental Status 08/28/23 Barriers to Learning one year Vision imp airment Mandatory Health Literacy Documentation Yes Health Literacy Communication Barriers N ever Primary Language Sami Problem List Condition Confirmation Course Effective Dates [...] Active Weight loss Confirmed Active 1told by housekeeping laundry worker but orthopedics doctors don't agree with the diagnosis. doesn't sees housekeeping laundry worker regularly. last seen by Dr. Escobar. 2Dr Frederick [facility] 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 4s/p ablation 2017 5renal ultrasound 5/20/16 Diagnosis Diagnosis Type Effective Dates Health Status Clinical Service Informant Chronic pain Discharge Diagnosis 08/28/23 Failed back syndrome, lumbar Discharge Diagnosis 08/28/23 Sacroiliitis Discharge Diagnosis 08/28/23 Presence of intrathecal pump Discharge Diagnosis 08/28/23 Procedures Procedure Date Related Diagnosis Body Site Status Injection of sacroiliac joint 1 07/13/23 Completed Procedure 2 03/01/23 Completed Procedure 3 11/29/22 Completed Excision biopsy 4 04/12/22 Complet ed Surgery 5 12/2021 Completed Bilateral digital screening mammogram tomosynthesis with synthetic 2D with CAD 6 12/07/21 Completed DEXA - dual energy X-ray absorptiometry 7 11/10/21 Completed REFILL/MAINT PUMP/RESVR SYST 11/02/21 Completed Radiofrequency ablation of n erve of sacroiliac joint using fluoroscopic guidance 8 02/21/21 Completed Nerve block with injection o f lumbar spine using fluoroscopic guidance 12/03/20 Completed Nerve block with injection o f lumbar spine using fluoroscopic guidance 10/19/20 Completed REFILL/MAINT PUMP/RESVR SYST 09/29/20 Completed Polysomnography 9 09/22/20 Complet ed Mammogram 10 08/05/20 Completed Injection 11 07/19/20 Completed REFILL/MAINT PUMP/RESVR SYST 06/16/20 Completed Refilling of implanted drug reservoir 12 11/10/19 Completed Epidural steroid injection 13 10/06/19 Completed Refilling of implanted drug reservoir 14 10/06/19 Completed Blepharoplasty 05/22/19 Completed Chest x-ray 15 03/24/[address] of chest without contrast 16 03/24/19 Completed REFILL/MAINT PUMP/RESVR SYST 11/11/18 Completed REFILL/MAINT PUMP/RESVR SYST 08/07/18 Completed Mammogram 17 07/23/18 Completed Refilling of implanted drug reservoir 04/16/18 Completed US scan of lower leg 18 12/25/17 C ompleted Venous doppler ultrasonograp hy right lower extremity 19 12/25/17 Completed X-ray of right knee 20 12/25/17 Co mpleted Cardiac ablation system 11/2017 C ompleted Epidural steroid injection 10/11/17 Completed Chest X-ray 21 10/02/17 Completed Refilling of implanted drug reservoir 08/29/17 Completed Ultrasound scan of bladder a nd kidneys 22 06/26/17 Completed Mammogram - screening 23 05/28/17 Completed Ultrasound of kidneys and bladder 24 07/04/16 Completed Mammogram 25 05/23/16 Completed Refilling and maintenance of implantable pump or reservoir for drug delivery, spinal (intrathecal, epidural) or brain (intraventricular), includes electronic analysis of pump, when performed; requiring skill of a physician or other qualified health care p 04/11/16 Completed Elbow X-ray left 26 01/03/16 Compl eted Elbow X-ray 27 12/15/15 Completed Ultrasound renal 28 12/05/15 Compl eted Electronic analysis of progr ammable, implanted pump for intrathecal or epidural drug infusion (includes evaluation of reservoir status, alarm status, drug prescription status); with reprogramming and refill (requiring skill of a physician or other qualifi 12/02/15 Completed Bone density scan 29 08/20/15 Comp leted Refilling and maintenance of implantable pump or reservoir for drug delivery, spinal (intrathecal, epidural) or brain (intraventricular), includes electronic analysis of pump, when performed; requiring skill of a physician or other qualified health care p 07/29/15 Completed Mammogram 30 05/20/15 Completed Injection of facet joint 31 01/05/15 Completed Refilling and maintenance of implantable [...] of pump, when performed; 05/27/14 Completed Mammogram 32 05/19/14 Completed Colonoscopy 33 07/28/13 Completed mammo 34 03/12/13 Completed bone desnity 10/03/12 Completed cataract removal, left eye Completed cervical spinal fusion x Completed cholecystecomy Completed Closed fracture of left radial head 35 Completed Epidural injection of lumbar spine using fluoroscopic guidance Comp leted Fracture of orbital floor Completed lumbar spinal fusion - x 6 Completed pain pump implantation Co mpleted Pump Completed Refilling and maintenance of implantable pump or reservoir for drug delivery, spinal (intrathecal, epidural) or brain (intraventricular), includes electronic analysis of pump, when performed; Completed ruptured tubal - surgery Completed 1Left sacroiliac joint injection 2Pump refill 3Left SI Joint injection and pump refill 4abdomen 5carpal tunnel 6Impression: ACR BI RADS CATEGORY 2: Benign There is no mammographic evidence of malignancy. A 1 year screening mammogram is recommended. (12/08/2022) The patient will receive written notification of the results. 7femur neck left: -1.9 femur neck right: -3.3 femur left total: -1.8 femur right total: -3.0 forearm radius: -4.2 z-score: -1.6 8left 9No evidence of clinically significant sleep apnea. The patient did have nocturnal hypoxemia corrected with low-flow oxygen 1 liter/minute. 10ACR BI RADS cat 2 Benign No evidence of malignancy 11LEFT Sacroiliac Joint INjection 12hydromorphone/bupivicaine 13Transforaminal 14Intrathecal 15No active disease in the chest 16Cardiomegaly with no active disease in the chest 17There is no mammographic evidence of malignancy. A one year screening is recommended. 18No DVT in right lower extremity. 19no evidence of deep venous thrombus within the right lower extremity 20No acute fractures osteopenia mild osteoarthritic changes minimal left-sided chondrocalcinosis 21Technically limited study. No evidence of failure. Suspected right lower olobe bronchiectasis. Right basilar air space opacities, likely atelectatic. Non- specific increased density in the paratracheal region. Short term x-ray or Chest CT recommended 22Impression: 1. Nonobstructing left renal calculi. 2. Minimally complex cystic lesion in the right kidney. Although lesion is unchanged in size at oneyear. 23WNL - 1 yr 241. The kidneys demonstrate cortical atrophy and are without hydronephrosis. 2. The bladder is normal as visualized 3. There is a 6.0cm minimally complex cystic lesion present in the right kidney. This is similar inappearance to the 12/03/2015 examination. 1 additional precautionary follow-up examination is recommended in one years time. 25wnl/repeat 1 yr 26Healing minimally angulated fracture of the radial head and neck as compared to 12/15/2015. Alignmentappears unchanged 27Minimally angulated radial head fracture and joint effusion. 281. no hydronephrosis 2. 5.2 cm mildly complex right renal cyst which contains a slightly thickened septation. This is probably benign but a follow-up ultrasound in 6 months is recommended to ensure stability 3. post void residual of 85 cc 29osteopenic - fx risk moderate - repeat one year 30No mammographic evidence of malignancy. 1 year screening recomended 31Lumbar 32wnl/repeat 1 yr 33normal results repeat 10 yr 34repeat 1 yr , wnl 35No surgical intervention Vital Signs Most recent to oldest [Reference Range]: 1 Temperature [36.5-37.9 DegC] 36.0 DegC *LOW* (08/28/23 12:45 PM) Heart Rate 67 bpm (08/28/23 12:45 PM) Respiratory Rate 14 br/min (08/28/23 12:45 PM) Blood Pressure 135/75mmHg (08/28/23 12:45 PM) Cuff Pulse Pressure 60 mmHg (08/28/23 12:45 PM) Social History Social History Type Response Tobacco 1 Smoking Status Never smoked cigaret kitty Sex Female 1smoked for 15yrs - 2ppd. Note * Services, CPDI: PERFORM Event Display: Implantable Pump Refill Note Authored Date: [id number] Patient Care team information Care Team Personnel Name: MD Suresh, Saurabh Position: Physician - Anesthesiologist Member Role: Lifetime Relationship Address: Address: [address] [place] [address] [place] Name: Aristides Wright Kimberly Position: Pharmacist BCMA Member Role: Pharmacy - Lifetime Address: Address: [place] [address] [place] Name: TE Cason Christina L Position: Physician - Podiatry Member Role: Lifetime Relationship Address: Address: [address] [address] [place] Name: Aristides Ortega Shailja Position: Pharmacist Member Role: Pharmacy - Lifetime Address: Address: [place] [address] [place] Name: MD Eliot, Silvia Position: Physician - Family Med Member Role: Primary Care Provider Address: Address: [address] [facility] [address] [place] [address] [place] Name: Aristides Dobbs Paula Position: Pharmacist Member Role: Pharmacy - Lifetime Address: Address: [facility] [address] [place] [address] Name: DO Acosta Scott A Position: Referring DIRECT Member Role: Lifetime Relationship Address: Address: [address] [place] [address] Care Team Related Persons Name: BERNABE FIELDS Address: home [address], [phone] Name: SHELBIE FIELDS Address: home [address] [facility] [place] [phone]
--- OUTSIDE RECORDS SUMMARY | 2023-11-18 18:44 | External Medical Summary | Continuity of Care Document ---
Author Name Unknown Organization [address] Address [address] [place] [address] DR [place] [id number] Care Team Providers Care Stone Belt Sander Name Role Phone Eliot Silvia Primary Care Physician [phone] [id number] Date(s): 07/26/23 - 07/26/[address] [place] [address] [facility], [address] [place] [address] [phone] Encounter Diagnosis Pharyngitis(Discharge Diagnosis) - 07/25/23 Body mass index [BMI] 25.0-25.9, adult(Discharge Diagnosis) - 07/26/23 Discharge Disposition: Home or Self Care Attending Physician: DO Gama Kristen M Allergies, Adverse [...] Plan Extracted from: Title:Office Visit Note Author:MD Yaneth, Wasiq Date:07/26/23 1.Pharyngitis Acute, uncomplicated illness/injury Goal:Resolution Data:_ _ Plan: -Clinical history and exam consistent with viral pharyngitis -Advised continued supportive care -Return to clinic with worsening symptoms for further evaluation Immunizations Given and Recorded Vaccine Date Status [...] BY MOUTH TWO TIMES DAILY NEEDED, Pharmacy: [facility] Start Date: 02/06/23 Status: Ordered acetaminophen-oxyCODONE 325 mg-10 mg oral tablet Start: 01/01/23 16:24:00 EDT, See Instructions, Disp# 60 tab, Refills: 0, TAKE 1 TABLET BY MOUTH TWO TIMES DAILY NEEDED, Pharmacy: [facility] Start Date: 01/01/23 Status: Ordered acetaminophen-oxycodone 325 mg-10 mg oral tablet Start: 03/22/23 15:57:00 EDT, See Instructions, Disp# 60 tab, Refills: 0, TAKE 1 TABLET BY MOUTH TWO TIMES DAILY NEEDED, Pharmacy: [facility] Start Date: 03/22/23 Status: Ordered acetaminophen-oxyCODONE 325 mg-10 mg oral tablet Start: 11/24/22 15:07:00 EDT, See Instructions, Disp# 60 tab, Refills: 0, TAKE 1 TABLET BY MOUTH TWO TIMES DAILY, NEEDED., Pharmacy: [facility] Start Date: 11/24/22 Status: Ordered acetaminophen-oxycodone 325 mg-10 mg oral tablet Start: 07/17/23 22:06:00 EST, See Instructions, Disp# 60 tab, Refills: 0, TAKE 1 TABLET BY MOUTH TWO TIMES DAILY, Pharmacy: [facility] Start Date: 07/17/23 Status: Ordered acetaminophen-oxycodone 325 mg-10 mg oral tablet Start: 05/04/23 15:40:00 EDT, See Instructions, Disp# 60 tab, Refills: 0, TAKE 1 TABLET BY MOUTH TWO TIMES DAILY NEEDED, Pharmacy: [facility] Start Date: 05/04/23 Status: Ordered acetaminophen-oxyCODONE 325 mg-10 mg oral tablet Start: 10/20/22 12:29:00 EDT, See Instructions, Disp# 60 tab, Refills: 0, TAKE 1 TABLET BY MOUTH TWO TIMES DAILY NEEDED, Pharmacy: [facility] Start Date: 10/20/22 Status: Ordered acetaminophen-oxycodone 325 mg-10 mg oral tablet Start: 06/05/23 21:42:00 EST, See Instructions, Disp# 60 tab, Refills: 0, TAKE 1 TABLET BY MOUTH TWO TIMES DAILY NEEDED, Pharmacy: [facility] Start Date: 06/05/23 Status: Ordered [...] q7days, Disp# 4 tab, Refills: 11, Pharmacy: [facility] Start Date: 08/25/22 Stop Date: 07/27/23 Status: Ordered lisinopril 20 mg oral tablet Start: 07/11/22 13:19:00 EST, See Instructions, Disp# 90 tab, Refills: 5, TAKE 1 TABLET BY MOUTH EVERY DAY, Pharmacy: [facility] Start Date: 07/11/22 Status: Ordered mupirocin 2% topical ointment Start: 03/08/22 15:20:00 EDT, 1 appl, topical, Daily, Disp# 22 g, Refills: 1, to abdomen, Pharmacy:[facility] Start Date: 03/08/22 Status: Ordered Myrbetriq 50 mg oral tablet, extended release Start: 10/19/20 10:06:00 EDT, 1 tab, PO, Daily Start Date: 10/19/20 Status: Ordered Nasal spray Start: 07/25/19 10:43:00 EST, Nasal spray Start Date: 07/25/19 Status: Ordered potassium chloride 20 mEq/15 mL oral liquid Start: 05/25/23 12:11:00 EST, 30 mL, PO, qid, Disp# 3,600 mL, Refills: 3, Pharmacy: [facility] Start Date: 05/25/23 Status: Ordered pravastatin 20 mg oral tablet Start: 09/19/22 12:09:00 EST, See Instructions, Disp# 90 tab, Refills: 10, TAKE 1 TABLET BY MOUTH EVERY DAY, Pharmacy: [facility] Start Date: 09/19/22 Status: Ordered senna oral tablet Start: 08/11/13 12:56:00 EST, 1 - 3 tabs, PO, Daily Start Date: 08/11/13 Status: Ordered Sutab oral tablet Start: 07/19/23 10:42:00 EST, See Instructions, Disp# 24 tab, Refills: 0, Follow instructions from endoscopy center, not package insert., Pharmacy: [facility] Start Date: 07/19/23 Status: Ordered Zofran 4 mg oral tablet Start: 07/19/23 10:42:00 EST, 1 tab, PO, bid, Disp# 3 tab, Refills: 0, Take 1 tablet 30 minutes prior to bowel prep as needed for nausea, PRN: as needed for nausea/vomiting, Pharmacy: [facility] Start Date: 07/19/23 Status: Ordered Mental Status 07/26/23 Barriers to Learning one year Vision imp airment Mandatory Health Literacy Documentation Yes Health Literacy Communication Barriers N ever Primary Language Malaysian Problem List Condition Confirmation Course Effective Dates [...] Active Weight loss Confirmed Active 1told by registered representative but orthopedics doctors don't agree with the diagnosis. doesn't sees registered representative regularly. last seen by Dr. Escobar. 2Dr Frederick - Pain Mx. 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 4s/p ablation 2017 5renal ultrasound 12/03/15 Diagnosis Diagnosis Type Effective Dates Health Status Clinical Service Informant Pharyngitis Discharge Diagnosis 07/25/23 Body mass index [BMI] 25.0-25.9, adult Discharge Diagnosis 07/26/23 Non-Specified Procedures Procedure Date Related Diagnosis Body Site [...] Venous doppler ultrasonograp hy right lower extremity 12/25/17 Completed X-ray of right knee 20 [...] Most recent to oldest [Reference Range]: 1 Height 158.6 cm (07/26/23 11:19 AM) Patient Weight 65.2 kg (07/26/23 11:19 AM) Body Mass Index 25.92 kg/m2 (07/26/23 11:19 AM) Temperature [36.5-37.9 DegC] 35.9 DegC *LOW* (07/26/23 11:19 AM) Heart Rate 69 bpm (07/26/23 11:19 AM) Blood Pressure 110/60mmHg (07/26/23 11:19 AM) Cuff Pulse Pressure 50 mmHg (07/26/23 11:19 AM) Social History Social History Type Response Tobacco 1 Smoking Status Never smoked cigaret kitty Sex Female 1smoked for 15yrs - 2ppd. FCM Outpt Note * DO Gama Kristen M: MODIFY MD Yaneth, Wasiq: PERFORM Event Display: FCM Outpt Note Authored Date: Chief Complaint Sorethroat started Sunday. History of Present Illness 78 yo F presenting with sore throat. Symptoms began 2 days prior -Presenting symptoms- sore throat -Denies fever and dyspnea -Has had difficulty eating due to sore throat -Sick contacts include who has sinus congestion -Relief measures- OTC medication -COVID vaccinated and boosted -COVID home test negative on 07/25 Review of Systems Per HPI Physical Exam Vitals & Measurements T:35.9C HR:69(Monitored) BP:110/60 SpO2:98% HT:158.6cm WT:65.200kg(Dosing) WT:65.2kg BMI:25.92 PHQ2 Data(Data Documented on:07/26/2023 11:17) Emotional health assessment NEGATIVE General: well-appearing, no acute distress HEENT: moist mucous membranes, clear pharynx without erythema or exudate, no palpablelymphadenopathy, tympanic membranes clear b/l, no frontal or maxillary sinus tenderness CV: RRR, normal S1 and S2, no murmurs Resp: CTAB, unlabored respirations, no wheezes or crackles Assessment/Plan 1.Pharyngitis Acute, uncomplicated illness/injury Goal:Resolution Data:_ _ Plan: -Clinical history and exam consistent with viral pharyngitis -Advised continued supportive care -Return to clinic with worsening symptoms for further evaluation Attestation I have reviewed and discussed the history and physical findings with the residentand agree with theabove impression and plan Problem List/Past Medical History Ongoing ALLERGIC RHINITIS [...] swelling of right lower leg Procedure/Surgical History Injection of sacroiliac joint (07/13/2023)Procedure (03/01/2023)Procedure (11/29/2022)Excision biopsy (04/12/2022)Surgery (12/2021)Bilateral digital screening mammogram tomosynthesis with synthetic 2D with CAD (12/07/2021)DEXA - dual energy X-ray absorptiometry (11/10/2021)REFILL/MAINT PUMP/RESVR SYST (11/02/2021)Radiofrequency ablation of nerve of sacroiliac joint using fluoroscopic guidance (02/21/2021)Nerve block with injection of lumbar spine using fluoroscopic guidance (12/03/2020)Nerve block with injection of lumbar spine using fluoroscopic guidance (10/19/2020)REFILL/MAINT PUMP/RESVR SYST (09/29/2020)Polysomnography (09/22/2020)Mammogram (08/05/2020)Injection (07/19/2020)REFILL/MAINT PUMP/RESVR SYST (06/16/2020)Refilling of implante d drug reservoir (11/10/2019)Epidural steroid injection (10/06/2019)Refilling of implanted drug reservoir (10/06/2019)Blepharoplasty (05/22/2019)CT of chest without contrast (03/24/2019)Chest x-ray (03/24/2019)REFILL/MAINT PUMP/RESVR SYST (11/11/2018)REFILL/MAINT PUMP/RESVR SYST (08/07/2018)Mammogram (07/23/2018)Refilling of implanted drug reservoir (04/16/2018)Venous doppler ultrasonography right lower extremity (12/25/2017)X-ray of right knee (12/25/2017)USscan of lower leg (12/25/2017)Cardiac ablation system (11/2017)Epidural steroid injection (10/11/2017)Chest X-ray (10/02/2017)Refilling of implanted drug reservoir (08/29/2017)Ultrasound scan of bladder and kidneys (06/26/2017)Mammogram - screening (05/28/2017)Ultrasound of kidneys and bladder (07/04/2016)Mammogram (05/23/2016)Refilling and maintenance of implantable pump or reservoir for drug delivery, spinal (intrathecal, epidural) or brain (intraventricular), includes electronic analysis of pump, when performed; requiring skill of a physician or other qualified health care p (04/11/2016)Elbow X-ray left (01/03/2016)Elbow X-ray (12/15/2015)Ultrasound renal (12/05/2015)Electronic analysis of programmable, implanted pump for intrathecal or epidural drug infusion (includes evaluation of reservoir status, alarm status, drug prescription status); withreprogramming and refill (requiring skill of a physician or other qualifi (12/02/2015)Bone density scan (08/20/2015)Refilling and maintenance of implantable pump or reservoir for drug delivery,spinal (intrathecal, epidural) or brain (intraventricular), includes electronic analysis of pump, when performed; requiring skill of a physician or other qualified health care p (07/29/2015)Mammogram (05/20/2015)Injection of facet joint (01/05/2015)Refilling and maintenance of implantable pump or reservoir for drug delivery, spinal (intrathecal, epidural) or brain (intraventricular), includes electronic analysis of pump, when performed; requiring skill of a physician or other qualifiedhealth care p (10/19/2014)Refilling and maintenance of implantable pump or reservoir for drug delivery, spinal (intrathecal, epidural) or brain (intraventricular), includes electronic analysis of pump, when performed; (05/27/2014)Mammogram (05/19/2014)Colonoscopy (07/28/2013)mammo (03/12/2013)bone desnity (10/03/2012)pain pump implantationcholecystecomyruptured tubal pregna ncy - surgerycervical spinal fusion xlumbar spinal fusion - x 6Epidural injection of lumbar spine using fluoroscopic guidancecataract removal, left eyeRefilling and maintenance of implantable pump or reservoir for drug delivery, spinal (intrathecal, epidural) or brain (intraventricular), includes electronic analysis of pump, when performed;PumpFracture of orbital floorClosed fracture of left radial head Medications acetaminophen-oxyCODONE(acetaminophen-oxyCODONE 325 mg-10 mg oral tablet), See Instructions acetaminophen-oxyCODONE(acetaminophen-oxyCODONE 325 mg-10 mg oral tablet), See Instructions acetaminophen-oxycodone(acetaminophen-oxycodone 325 mg-10 mg oral tablet), See Instructions acetaminophen-oxyCODONE(acetaminophen-oxyCODONE 325 mg-10 mg oral tablet), See Instructions acetaminophen-oxycodone(acetaminophen-oxycodone 325 mg-10 mg oral tablet), See Instructions acetaminophen-oxycodone(acetaminophen-oxycodone 325 mg-10 mg oral tablet), See Instructions acetaminophen-oxyCODONE(acetaminophen-oxyCODONE 325 mg-10 mg oral tablet), See Instructions acetaminophen-oxycodone(acetaminophen-oxycodone 325 mg-10 mg oral tablet), See Instructions alendronate(Fosamax 70 mg oral tablet), 70 mg= 1 tab, PO, q7days, 11 refills aspirin(aspirin 81 mg oral tablet), 81 mg= 1 tab, PO, Daily cetirizine(cetirizine 10 mg oral tablet), 10 mg= 1 tab, PO, Daily docusate(Colace 100 mg oral capsule), 200 mg= 2 cap, PO, Daily, PRN lisinopril(lisinopril 20 mg oral tablet), See Instructions magnesium sulfate/potass Cl/sodium sulf(Sutab oral tablet), See Instructions mirabegron(Myrbetriq 50 mg oral tablet, extended release), 50 mg= 1 tab, PO, Daily mupirocin topical(mupirocin 2% topical ointment), 1 appl, topical, Daily, 1 refills ondansetron(Zofran 4 mg oral tablet), 4 mg= 1 tab, PO, bid, PRN potassium chloride(potassium chloride 20 mEq/15 mL oral liquid), 30 mL, PO, qid pravastatin(pravastatin 20 mg oral tablet), See Instructions senna(senna oral tablet), 1 - 3 tabs, PO, Daily unknown medication(Nasal spray) Allergies Betadinerash IVP dyeAnaphylaxis, facial swelling, sneezing Lyricahand/face swelling Vioxxhand swelling, facial swelling celecoxibfacial swelling ibuprofenany doses 800mg or higher can't have, facial swelling iodine topicalrash shellfishrash Social History Smoking Status Never smoked cigarettes Alcohol - Comments: none 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 keeps herself pretty active. Home/Environment Lives with:Spouse - Comments: Other son in [place]- one grandson one son with autism still [...] due05/25/23and every 1year Due Adult COVID-19 Vaccination due07/26/23Unknown Frequency Adult Social Determinants of Health Screening due07/26/23Unknown Frequency Due In Future Adult Influenza Vaccine not due until01/13/24and every 1year Satisfied(in the past 1 year) Satisfied Adult Influenza Vaccine on03/12/23.Satisfied by PIERCE No, Chiquis Body Mass Index on07/26/23.Satisfied by CHUCK Gallo Angela Breast Cancer Screening on12/08/22.Satisfied by CHUCK Perdomo Vanessa T Electronic Signature on File Electronically Reviewed/Signed by: Willard Wolfe MD Author Signature Dt/Tm:07/26/2023 11:31 AM Resident Department of Family Medicine Electronically Reviewed/Signed by: DO Juanita Wilcox Signature Dt/Tm: 07/26/2023 11:54 AM Department of Family Medicine [place] Patient Care team information Care Team Personnel Name: MD Suresh, Saurabh Position: Physician - Anesthesiologist Member Role: Lifetime Relationship Address: Address: [address] [place] [address] [place] Name: Aristides Wright Kimberly Position: Pharmacist BCMA Member Role: Pharmacy - Lifetime Address: Address: [place] [address] [place] Name: TE Cason Christina L Position: Physician - Podiatry Member Role: Lifetime Relationship Address: Address: [address] [place] [address] [place] Name: Aristides Ortega Shailja Position: Pharmacist Member Role: Pharmacy - Lifetime Address: Address: [address] [address] [place] Name: MD Eliot, Silvia Position: Physician - Family Med Member Role: Primary Care Provider Address: Address: [address] [place] [phone] [place] Name: Aristides Dobbs Paula Position: Pharmacist Member Role: Pharmacy - Lifetime Address: Address: [address] [address] [place] Name: DO Acosta Scott A Position: Referring DIRECT Member Role: Lifetime Relationship Address: Address: [address] [place] [id number] [place] Care Team Related Persons Name: BERNABE FIELDS Address: home [address], [phone] Name: SHELBIE FIELDS Address: home [address] [facility] [facility] [place] [phone]
--- OUTSIDE RECORDS SUMMARY | 2023-11-18 18:44 | External Medical Summary | Continuity of Care Document ---
Author Name Unknown Organization [facility] [address] [place] [address] [place] [id number] Care Team Providers Care Sales And Distribution Clerk Name Role Phone Silvia Mccabe Primary Care Physician [phone] Encounter [facility] [id number] Date(s): 07/13/23 - 07/13/23 [facility] [address] [facility] [address], [address], [address] [place] [address] [phone] Encounter Diagnosis Sacroiliitis(Discharge Diagnosis) - 07/13/23 Discharge Disposition: Home or Self Care Attending Physician: MD Suresh, Saurabh Referring Physician: MD Mccabe Madhavi Allergies, Adverse Reactions, Alerts Substance Reaction Severity Status ibuprofen any doses 800mg or h igher can't have facial swelling Active iodine topical rash Active Betadine rash Active Vioxx hand swelling facial swelling Active celecoxib facial swelling Active shellfish rash Active IVP dye Anaphylaxis facial swelling sneezing Active Lyrica hand/face swelling Active Immunizations Given and Recorded Vaccine Date [...] BY MOUTH TWO TIMES DAILY NEEDED, Pharmacy: [facility] Start Date: 02/06/23 Status: Ordered acetaminophen-oxyCODONE 325 mg-10 mg oral tablet Start: 01/01/23 16:24:00 EDT, See Instructions, Disp# 60 tab, Refills: 0, TAKE 1 TABLET BY MOUTH TWO TIMES DAILY NEEDED, Pharmacy: [facility] Start Date: 01/01/23 Status: Ordered acetaminophen-oxycodone 325 mg-10 mg oral tablet Start: 03/22/23 15:57:00 EDT, See Instructions, Disp# 60 tab, Refills: 0, TAKE 1 TABLET BY MOUTH TWO TIMES DAILY NEEDED, Pharmacy: [facility] Start Date: 03/22/23 Status: Ordered acetaminophen-oxyCODONE 325 mg-10 mg oral tablet Start: 11/24/22 15:07:00 EDT, See Instructions, Disp# 60 tab, Refills: 0, TAKE 1 TABLET BY MOUTH TWO TIMES DAILY, NEEDED., Pharmacy: [facility] Start Date: 11/24/22 Status: Ordered acetaminophen-oxycodone 325 mg-10 mg oral tablet Start: 05/04/23 15:40:00 EDT, See Instructions, Disp# 60 tab, Refills: 0, TAKE 1 TABLET BY MOUTH TWO TIMES DAILY NEEDED, Pharmacy: [facility] Start Date: 05/04/23 Status: Ordered acetaminophen-oxyCODONE 325 mg-10 mg oral tablet Start: 10/20/22 12:29:00 EDT, See Instructions, Disp# 60 tab, Refills: 0, TAKE 1 TABLET BY MOUTH TWO TIMES DAILY NEEDED, Pharmacy: [facility] Start Date: 10/20/22 Status: Ordered acetaminophen-oxycodone 325 mg-10 mg oral tablet Start: 06/05/23 21:42:00 EST, See Instructions, Disp# 60 tab, Refills: 0, TAKE 1 TABLET BY MOUTH TWO TIMES DAILY NEEDED, Pharmacy: [facility] Start Date: 06/05/23 Status: [...] q7days, Disp# 4 tab, Refills: 11, Pharmacy: [facility] Start Date: 08/25/22 Stop Date: 07/27/23 Status: Ordered lisinopril 20 mg oral tablet Start: 07/11/22 13:19:00 EST, See Instructions, Disp# 90 tab, Refills: 5, TAKE 1 TABLET BY MOUTH EVERY DAY, Pharmacy: [facility] Start Date: 07/11/22 Status: Ordered mupirocin 2% topical ointment Start: 03/08/22 15:20:00 EDT, 1 appl, topical, Daily, Disp# 22 g, Refills: 1, to abdomen, Pharmacy:[facility] Start Date: 03/08/22 Status: Ordered Myrbetriq 50 mg oral tablet, extended release Start: 10/19/20 10:06:00 EDT, 1 tab, PO, Daily Start Date: 10/19/20 Status: Ordered Nasal spray Start: 07/25/19 10:43:00 EST, Nasal spray Start Date: 07/25/19 Status: Ordered potassium chloride 20 mEq/15 mL oral liquid Start: 05/25/23 12:11:00 EST, 30 mL, PO, qid, Disp# 3,600 mL, Refills: 3, Pharmacy: [facility] Start Date: 05/25/23 Status: Ordered pravastatin 20 mg oral tablet Start: 09/19/22 12:09:00 EST, See Instructions, Disp# 90 tab, Refills: 10, TAKE 1 TABLET BY MOUTH EVERY DAY, Pharmacy: [facility] Start Date: 09/19/22 Status: Ordered senna oral tablet Start: 08/11/13 12:56:00 EST, 1 - 3 tabs, PO, Daily Start Date: 08/11/13 Status: Ordered Mental Status 07/13/23 Barriers to Learning one year Vision imp airment Mandatory Health Literacy Documentation Yes Health Literacy Communication Barriers N ever Primary Language Uzbek Problem List Condition Confirmation Course Effective Dates [...] Active Weight loss Confirmed Active 1told by statement clerk but orthopedics doctors don't agree with the diagnosis. doesn't sees statement clerk regularly. last seen by Dr. Escobar. 2Dr Frederick - Pain Mx. 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 4s/p ablation 2017 5renal ultrasound 12/03/15 Diagnosis Diagnosis Type Effective Dates Health Status Cl inical Service Informant Sacroiliitis Discharge Diagnosis 07/13/23 Procedures Procedure Date Related Diagnosis Body Site [...] Most recent to oldest [Reference Range]: 1 2 Temperature [36.5-37.9 DegC] 36.5 DegC (07/13/23 10:14 AM) Heart Rate 66 bpm (07/13/23 10:14 AM) Respiratory Rate 14 br/min (07/13/23 10:14 AM) Blood Pressure 165/78mmHg (07/13/23 10:19 AM) 167/100mmHg (07/13/23 10:14 AM) Cuff Pulse Pressure 67 mmHg (07/13/23 10:14 AM) Social History Social History Type Response Tobacco 1 Smoking Status Never smoked cigaret kitty Sex Female 1smoked for 15yrs - 2ppd. Patient Care team information Care Team Personnel Name: MD Prince Vitaly Position: Physician Member Role: Lifetime Relationship Address: Address: [address] [place] [address] [address] [place] [address] [place] Name: Aristides Wright Kimberly Position: Pharmacist BCMA Member Role: Pharmacy - Lifetime Address: Address: [address] [address] [place] Name: TE Cason Christina L Position: Physician - Podiatry Member Role: Lifetime Relationship Address: Address: [address] [facility] [address] [place] [address] [place] Name: Aristides Ortega Shailja Position: Pharmacist Member Role: Pharmacy - Lifetime Address: Address: [facility] [address] [place] [address] [place] Name: MD Mccabe Madhavi Position: Physician - Family Med Member Role: Primary Care Provider Address: Address: [address] [facility] [address] [place] [address] [place] Name: Aristides Dobbs Paula Position: Pharmacist Member Role: Pharmacy - Lifetime Address: Address: [facility] [address] [place] [address] [place] Name: DO Acosta Scott A Position: Referring DIRECT Member Role: Lifetime Relationship Address: Address: [address] [place] [address] Care Team Related Persons Name: BERNABE FIELDS Address: home [address], [phone] Name: SHELBIE FIELDS Address: home [address] [facility] [place] [phone]
--- OUTSIDE RECORDS SUMMARY | 2023-11-18 18:44 | External Medical Summary | Continuity of Care Document ---
Author Name Unknown Organization [address] Address [address] [place] [address] [address] [place], [place] [id number] Encounter [facility] [id number] Date(s): 10/08/23 - 10/08/[address] [place] [facility] [address], [address] [place] [address] [phone] Encounter Diagnosis Dizziness(Discharge Diagnosis) - 10/08/23 Palpitation(Discharge Diagnosis) - 10/08/23 BPPV (benign paroxysmal positional vertigo)(Discharge Diagnosis) - 10/08/23 Discharge Disposition: Home or Self Care Attending Physician: DO Gama Kristen M Allergies, Adverse Reactions, Alerts Substance Reaction Severity Status ibuprofen any doses 800mg or h igher can't have facial swelling Active Vioxx hand swelling facial swelling Active Lyrica hand/face swelling Active iodine topical rash Active Betadine rash Active shellfish rash Active celecoxib facial swelling Active IVP dye Anaphylaxis facial swelling sneezing Active Assessment and Plan Extracted from: Title:Office Visit Note Author:DO Aguilar Audrey Date:10/08/23 BPPV (benign paroxysmal posi tional vertigo) Discussed with patient her dizziness is likely BPPV exacerbated by recent allergies. Advised patient to continue with nasal sprays for allergy control. Will order Meclizine to help with dizziness, 12.5mg meclizine 1-2 tabs q8h prn. Will order PT referral. Provided patient with instructions for Kerri maneuver at home. Advised patient to reduce head turning at night. Dizziness Palpitation Patient has occasional palpitations no SOB chest pain weakness, she related it to possible low potassium levels. Low suspicion for FL at this time, no EKG ordered. Will order CBC CMP TSH, patient has f/u in [address] Mccabe for 6 month check in. Immunizations Given and Recorded Vaccine Date Status [...] TABLET BY MOUTH TWO TIMES DAILY, Pharmacy: [id number] Start Date: 09/28/23 Status: Ordered alendronate 70 mg oral tablet Start: 09/03/23 16:50:00 EST, 1 tab, PO, q7days, Disp# 4 tab, Refills: 11, Pharmacy: [id number] Start Date: 09/03/23 Status: Ordered [...] Daily, Disp# 90 tab, Refills: 5, Pharmacy: [id number] Start Date: 07/31/23 Status: Ordered meclizine 12.5 mg oral tablet Start: 10/08/23 16:31:00 EDT, 1 tab, PO, tid, Disp# 15 tab, May take 1-2 tabs as needed for dizziness every 8 hours, PRN: as needed for dizziness, Pharmacy: [id number] Start Date: 10/08/23 Stop Date: [...] qid, Disp# 3,600 mL, Refills: 3, Pharmacy: [id number] Start Date: 05/25/23 Status: Ordered pravastatin 20 mg oral tablet Start: 10/04/23 13:21:00 EDT, 1 tab, PO, Daily, Disp# 90 tab, Refills: 10, Pharmacy: [id number] Start Date: 10/04/23 Status: Ordered senna oral tablet Start: 08/11/13 12:56:00 EST, 1 - 3 tabs, PO, Daily Start Date: 08/11/13 Status: Ordered Mental Status 10/08/23 Barriers to Learning one year Vision imp airment Mandatory Health Literacy Documentation Yes Health Literacy Communication Barriers N ever Primary Language Tamazight Problem List Condition Confirmation Course Effective Dates [...] Active Weight loss Confirmed Active 1told by [employer] wireman but orthopedics doctors don't agree with the diagnosis. doesn't sees [employer] electronics wireman regularly. last seen by Dr. Escobar. 2Dr Frederick - Pain Mx. 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 4s/p ablation 2017 5renal ultrasound 12/03/15 Diagnosis Diagnosis Type Effective Dates Health Status Clinical Service Informant Palpitation Discharge Diagnosis 10/08/23 Non-Specified Dizziness Discharge Diagnosis 10/08/23 Non-Specified BPPV (benign paroxysmal positional vertigo) Discharge Diagnosis 10/08/23 Non-Specified Procedures Procedure Date Related Diagnosis Body [...] to oldest [Reference Range]: 1 Patient Weight 66.6 kg (10/08/23 4:03 PM) Temperature [36.5-37.9 DegC] 37.5 DegC (10/08/23 4:03 PM) Blood Pressure 150/80mmHg (10/08/23 4:03 PM) Cuff Pulse Pressure 70 mmHg (10/08/23 4:03 PM) Social History Social History Type Response Tobacco 1 Smoking Status Never smoked cigaret kitty Sex Female 1smoked for 15yrs - 2ppd. [facility] Outpt Note * DO Gama Kristen M: MODIFY DO Gama Kristen M: MODIFY Event Display: [facility] Outpt Note Authored Date: [id number] Chief Complaint Pt has been experiencing dizziness and loss of appetite since sunday History of Present Illness 6yo Male here for concern dizziness. Dizziness since sunday, room spinning, slightly better today, doesn't feel like eating. No N/V. This happened once before when she was in grad school, got better with antivert. Allergies kicked in, lots of PND Room spinning horizontally. Worse moving her eyes up and down. Also having concern of occasional palpitations, no chest pain SOB weakness noted. Patient feels this is related to low sodium. Was previously evaluated by cardiology no concerns. Physical Exam Vitals & Measurements T:37.5C BP:150/80 SpO2:99% WT:66.600kg(Dosing) WT:66.6kg PHQ2 Data(Data Documented on:10/08/2023 16:02) Emotional health assessment NEGATIVE General: Well appearing age appropriate calm cooperative Heart: RRR, +S1 S2, no murmurs/rubs/gallops Lungs: CTA b/l, no wheezes/rales/rhonchi Neuro: Jessi haque noted some right sided beating nystagmus HEENT: TM intact b/l, no sinus tenderness on palpation, no cervical lymphadenopathy Assessment/Plan BPPV (benign paroxysmal positional vertigo) Discussed with patient her dizziness is likely BPPV exacerbated by recent allergies. Advised patient to continue with nasal sprays for allergy control. Will order Meclizine to help with dizziness, 12.5mg meclizine 1-2 tabs q8h prn. Will order PT referral. Provided patient with instructions for Kerri maneuver at home. Advised patient to reduce head turning at night. Dizziness Palpitation Patient has occasional palpitations no SOB chest pain weakness, she related it to possible low potassium levels. Low suspicion for FL at this time, no EKG ordered. Will order CBC CMP TSH, patient hasf/u in [address] Mccabe for 6 month check in. Attestation I saw the patient and confirmed the nice portions of the history and physical exam and agree with the impression and plan above Problem List/Past Medical History Ongoing ALLERGIC RHINITIS [...] Date: 09/25/2023Injection of sacroiliac joint| Service Date: 07/13/2023rocedure| Service Date: 03/01/2023rocedure| Service Date: 11/29/2022Excision biopsy| Service Date: 2Surgery| Service Date: ilateral digital screening mammogram tomosynthesis with synthetic 2D with CAD| Service Date: 12/07/2021EXA - dual energy X-ray absorptiometry| Service Date: 2REFILL/MAINT PUMP/RESVR SYST| Service Date: 2Radiofrequency ablation of nerve of sacroiliac joint using fluoroscopic guidance| Service Date: 02/21/2021Nerve block with injection of lumbar spine using fluoroscopic guidance| Service Date: 12/03/2020Nerveblock with injection of lumbar spine using fluoroscopic guidance| Service Date: 10/19/2020EFILL/MAINT PUMP/RESVR SYST| Service Date: 1Polysomnography| Service Date: 09/22/2020Mammogram| Service Date: 08/05/2020Injection| Service [...] - Comments: none Employment/School Description: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 ([email or web address] - [employer]. 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 keeps herself pretty active. Home/Environment Lives with:Spouse - Comments: Other son in [place]- one grandson one son with autism still [...] due05/25/23and every 1year Due Adult COVID-19 Vaccination due10/08/23Unknown Frequency Adult Social Determinants of Health Screening due10/08/23Unknown Frequency Due In Future Adult Influenza Vaccine not due until01/13/24and every 1year Satisfied(in the past 1 year) Satisfied Adult Influenza Vaccine on03/12/23.Satisfied by PIERCE No Kelly Body Mass Index on07/26/23.Satisfied by CHUCK Gallo Angela Breast Cancer Screening on12/08/22.Satisfied by CHUCK Perdomo Vanessa T Electronic Signature on File Electronically Reviewed/Signed by: Rita Aguilar DO Author Signature Dt/Tm:10/08/2023 04:42 PM Resident Department of Family Medicine Electronically Reviewed/Signed by: Nunu Gama DO Cosigner Signature Dt/Tm: 10/08/2023 05:30 PM Department of Family Medicine AD Patient Care team information Care Team Personnel Name: MD Suresh, Saurabh Position: Physician - Anesthesiologist Member Role: Lifetime Relationship Address: Address: [address] [place] [address] [place] Name: Aristides Wright Kimberly Position: Pharmacist BCMA Member Role: Pharmacy - Lifetime Address: Address: [address] [address] [place] Name: TE Cason Christina L Position: Physician - Podiatry Member Role: Lifetime Relationship Address: Address: [address] [facility] [address] [place] [address], [place] [address] [place] Name: Aristides Ortega Shailja Position: Pharmacist Member Role: Pharmacy - Lifetime Address: Address: [address] [address] [place] Name: Aristides Dobbs Paula Position: Pharmacist Member Role: Pharmacy - Lifetime Address: Address: [address] [address] [place] Name: DO Acosta Scott A Position: Referring DIRECT Member Role: Lifetime Relationship Address: Address: [address] [place] [address] Care Team Related Persons Name: BERNABE FIELDS Address: home [address] [place], [phone] Name: SHELBIE FIELDS Address: [address] [place] [id number]"
--- NOTE | 2023-11-18 21:57 | Electrocardiogram Report ---
Test Reason : Blood Pressure : / mmHG Vent. Rate : 070 BPM Atrial Rate : 070 BPM P-R Int : 136 ms QRS Dur : 082 ms QT Int : 386 ms P-R-T Axes : 049 -23 038 degrees QTc Int : 416 ms Sinus rhythm with Premature atrial complexes Low voltage QRS Borderline ECG When compared with ECG of 24-MAR-2019 14:33, Premature atrial complexes are now Present Confirmed by Dewayne Becerra ([id number]) on 11/18/2023 9:57:15 PM Referred By: Confirmed By:Dewayne Becerra
== END 2023-11-18 11:41 | disposition home or self-care (01) ==
LOC: 2N 14:35 → ED 14:35 → SUATTDRO 17:45 → 2N 22:18